=== PATIENT | female | born 1930 | race Hispanic/Latino ===

== ENCOUNTER 2016-08-17 14:00 | Inpatient (IN) | payer MEDICARE, OTHER ==
[~2016-08-17] VITALS: Ht 144.8 cm; Wt 53.7 kg
[2016-08-17 14:06] VITALS: BP 209/71; PULSE 68; RESP 18; O2SAT 98
--- NOTE | 2016-08-17 14:14 | ED.REPORT ---
HPI-General Illness Date of Service Aug 17, 2016 ED Provider: Dr. Juancarlos Marie MD An 86 year old female with a history of dementia presents to the ED with worsening memory loss that began one week ago. Daughter reports that the patient has significantly changed from her baseline. Recent associated symptoms include visual and auditory hallucinations and incoherent thought for the past few days. She has been partially treated for a UTI with Ciprofloxacin which was last given on 08/09. She received 5 out of 14 days of the treatment. Patient has had a previous admission for UTI that presented with similar symptoms. She endorses pain but cannot specify a location. Daughter denies fever, chills. nausea, vomiting, facial droop or changes in BM. Unable to obtain clear history due to patient mental status. Nursing Notes Stated Complaint: HALLUCINATING/MEMORY LOSS Chief Complaint: General Complaint Nursing Notes Reviewed: Yes Allergies: Coded Allergies: No Known Allergies (Unverified , 08/17/16) Scheduled Aspirin (Aspirin) 81 Mg Tablet 81 MG PO DAILY Benazepril (Benazepril) 10 Mg Tablet 10 MG PO DAILY Cholecalciferol (Vitamin D3) (Vitamin D3) 2,000 Unit Tablet 2,000 UNIT PO DAILY Ciprofloxacin (Cipro) 500 Mg Tablet 500 MG PO HS Ferrous Sulfate (Ferrous Sulfate) 325 Mg Tablet 325 MG PO Q48H Furosemide (Furosemide) 20 Mg Tab 10 MG PO DAILY Glipizide (Glipizide) 5 Mg Tablet 2.5 MG PO HS Levothyroxine (Levothyroxine) 25 Mcg Tablet 25 MCG PO DAILY Loperamide HCl (Imodium A-D) 2 Mg Capsule 2 MG PO MORNING Memantine (Namenda) 10 Mg Tablet 5 MG PO HS Olanzapine (Olanzapine) 2.5 Mg Tablet 2.5 MG PO HS General Time Seen by MD: 14:13 Chief Complaint Other (Confusion ) Hx Obtained From: Patient Unable to Obtain Hx: Mental status (Limited Hx due to mental status) Arrived By: Walk-in Sudden in Onset?: No Onset Occurred: 1 week ago Symptom Duration: Since onset Pertinent Negative: Pt denies other symptoms Recent Healthcare: No recent doctor visit, No recent hospitalization Past Medical History Past Medical History Dementia Recurrent UTI's Past Surgical History Valve replacement - unknown which one Cholecysectomy Smoking History Never Smoker Social History Pt currently lives with her daughter who travelled Other Social History: Good social support, From out of town [place] Ambulatory Status Independent Unable to Obtain History Unable to Obtain Due to: Limited PMHx due to mental status Review of Systems Unable to Obtain ROS Mental status (Daughter provides limited ROS) Physical Exam Nursing note and vitals reviewed. Constitutional: Elderly female lying in bed. Not diaphoretic. Head: Normocephalic and atraumatic. Mouth/Throat: Oropharynx is clear and moist. Mucous membranes moist. No oropharyngeal exudate. Eyes: EOM are normal. Pupils are equal, round, and reactive to light. Neck: Supple, no tracheal deviation. Cardiovascular: III/ systolic murmur. Normal rate, regular rhythm. Equal and intact distal pulses throughout. Trace edema to bilateral extremities. Pulmonary/Chest: Effort normal and breath sounds normal. No respiratory distress. Abdominal: Soft. No distension. There is no tenderness, rebound, or guarding. Bowel sounds present. Musculoskeletal: Range of motion grossly intact, able to move all extremities. Neurological: Alert but not answering specific questions regarding orientation to place, person, or time. Grossly nonfocal exam otherwise. Strength and sensation grossly intact and equal to bilateral upper and lower extremities. Skin: Warm and dry, no rashes or pallor appreciated. Psychiatric: Unable to assess secondary to mental status. Vital Signs Vital Signs Date Time Temp Pulse Resp B/P Pulse Ox O2 Delivery O2 Flow Rate FiO2 08/17/16 16:13 37.0 65 19 146/46 97 Room Air 08/17/16 14:06 36.9 68 18 209/71 98 Initial VS: Reviewed Interpretation & Diagnostics Lab Results Interpretation Result Diagram: 08/17/16 1447 08/17/16 1447 Test 08/17/16 14:47 08/17/16 16:29 White Blood Count 8.0th/mm3 (3.8-10.1) Red Blood Count 3.77mil/mm3 (3.90-5.20) Hemoglobin 9.5g/dL (12.0-15.6) Hematocrit 30.6% (35.0-46.0) Mean Corpuscular Volume 81.2fL (81-100) Mean Corpuscular Hemoglobin 25.2pg (27.0-35.0) Mean Corpuscular Hemoglobin Concent 31.0% (32.0-37.0) Red Cell Distribution Width 16.1% (12.3-15.4) Platelet Count 204bil/L (150-400) Neutrophils (%) (Auto) 53.2% (40-74) Lymphocytes (%) (Auto) 38.4% (14-46) Monocytes (%) (Auto) 6.8% (4-12) Eosinophils (%) (Auto) 0.8% (0-5) Basophils (%) (Auto) 0.5% (0-3) Prothrombin Time 9.6sec (8.1-12.5) Prothromb Time International Ratio 0.90ratio Sodium Level 138mEq/L (134-144) Potassium Level 5.4mEq/L (3.5-5.2) Chloride Level 103mEq/L (97-108) Carbon Dioxide Level 21mmol/L (18-29) Blood Urea Nitrogen 51mg/dL (8-27) Creatinine 1.26mg/dL (0.57-1.00) Estimat Glomerular Filtration Rate 58mL/min (>59) Glucose Level 62mg/dL (60-99) Lactic Acid Level 1.2mmol/L (0.4-2.0) Calcium Level 9.4mg/dL (8.5-10.1) Total Bilirubin 0.4mg/dL (0.0-1.2) Aspartate Amino Transf (AST/SGOT) 32U/L (0-50) Alanine Aminotransferase (ALT/SGPT) 20U/L (0-32) Alkaline Phosphatase 93U/L (25-165) Troponin T < 0.010ug/L (0.0-0.011) Pro-B-Type Natriuretic Peptide 4895pg/mL (0-738) Total Protein 8.0g/dL (6.4-8.4) Albumin 4.2g/dL (3.4-5.0) Hold Mulligan Top Tube Received (Received) Urine Color Yellow (YELLOW) Urine Appearance Clear (CLEAR,HAZY) Urine pH 5.5 (5.0-8.0) Urine Specific [place] 1.010 (1.003-1.035) Urine Protein 30mg/dL (NEG,TRACE) Urine Glucose (UA) Negativemg/dL (NEGATIVE) Urine Ketones Negativemg/dL (NEGATIVE) Urine Occult Blood Moderate (NEGATIVE) Urine Nitrite Negative (NEGATIVE) Urine Bilirubin Negative (NEGATIVE) Urine Urobilinogen Normalmg/dL (NORMAL) Urine Leukocyte Esterase Trace (NEGATIVE) Urine RBC 3-10/hpf (0-2) Urine WBC >50/hpf (0-5) Urine Epithelial Cells Moderate/hpf (NONE-MOD) Urine Crystals None seen (NONE SEEN) Urine Bacteria Moderate/hpf (NONE-FEW) Urine Hyaline Casts None/lpf (NONE) Urine Granular Casts None seen (NONE SEEN) Urine Waxy Casts None seen (NONE SEEN) Urine Red Blood Cell Casts None seen (NONE SEEN) Urine White Blood Cell Casts None seen (NONE SEEN) Urine Mucus None seen (None Seen) Urine Trichomonas None seen (NONE SEEN) Urine Yeast None (NONE SEEN) Urinalysis Comment None Urine Culture Reflexed Indicated ECG Interpretation ECG Interpretation: Sinus Rhythm Rate 60 Elevated T waves in anterolateral leads Prolonged ME interval Left axis deviation Time: 15:21 Interpreted by: ED physician X-Ray Chest Interpretation Chest Xray Interpretation: IMPRESSION: Pneumonia cannot be excluded behind the heart. Atelectasis or infiltrate is likely present Dictated by: London Garcia M.D. on 08/17/2016 at 17:03 Interpretation / Wet Read by: Interpret - Radiologist CT Head Interpretation IMPRESSION: No acute abnormality. No blood or edema is seen. Microvascular ischemic change age and is present in the atrophy is present, and small old lacunes in the thalami and left centrum semiovale are present. Dictated by: London Garcia M.D. on 08/17/2016 at 17:11 Study: Head CT no contrast Interpretation / Wet Read by: Interpret - Radiologist Re-Eval/Medical Decision Med Decision/Clinical Course In summary, 86-year-old female presenting to the ED for evaluation of altered mental status in the setting of recent urinary tract infection. She has no focal neurologic findings on exam. Daughter states that the patient has acted similarly in the past when she has had a urinary tract infection partially treated according to her report. She does have some evidence of urinary tract infection here; started on Levaquin. CT scan of the patient's head was negative for any acute intracranial abnormality. Chest x-ray demonstrates possible retrocardiac opacity consistent with pneumonia, however she has been started on antibiotics will defer any changes in treatment to inpatient team. Do not feel that she needs a lumbar puncture at this time given multiple possible sources, nonfocal exam, afebrile, etc. Plan admission for further evaluation and management. Time of Eval: 17:31 Patient Status: Condition improved Re-Evaluation/Progress Note: Family is informed of the pt's results and the plan to admit for observation. All of thier questions are addressed. They understand and agree with the plan to admit. Consultation : Referral / Consult Name: Master Robertson MD Consulted With: Hospitalist Quarry Supervisor Open Pit: Will see patient, Agrees with eval, Agrees with plan, Accepts admit Counseled Regarding: Diagnosis, Lab results, Need for admission Discharge & Departure Primary Impression: Urinary tract infection Urinary tract infection type: site unspecified Hematuria presence: without hematuria Qualified Code: N39.0 - Urinary tract infection, site not specified Additional Impression: Altered mental status Altered mental status type: unspecified Qualified Code: R41.82 - Altered mental status, unspecified Disposition: ADMITTED TO HOSPITAL Discharge Condition All VS Reviewed: Yes Condition: Stable Scribe Attestation Portions of this note were transcribed by Kate Bui. I, Dr. Marie personally performed the history, physical exam and medical decision-making; I reviewed and confirmed the accuracy of the information in the transcribed note. Signed by: Joey White, 08/17/16 1602. Juancarlos Marie MD Aug 17, 2016 14:14 KATE BUI Aug 17, 2016 14:45
[2016-08-17 14:56] LABS: BASOPHILS % (AUTO) 0.5 % (0-3); EOSINOPHILS % (AUTO) 0.8 % (0-5); MONOCYTES % (AUTO) 6.8 % (4-12); Mean Corpuscular Hemoglobin 25.2 pg (27.0-35.0); Mean Corpuscular Volume 81.2 fL (81-100); NEUTROPHILS % (AUTO) 53.2 % (40-74); Platelet Count 204 bil/L (150-400)
[2016-08-17 16:13] VITALS: BP 146/46; PULSE 65; RESP 19; O2SAT 97
[2016-08-17] MEDS ORDERED: 0.9% Sodium Chloride 1,000 ML IV ONE (16:27)
[2016-08-17 16:37] LABS: APPEARANCE,URINE CLEAR (CLEAR,HAZY); COLOR,URINE YELLOW (YELLOW); OCCULT BLOOD,URINE MODERATE (NEGATIVE); PH,URINE 5.5 (5.0-8.0); UROBILINOGEN,URINE NORMAL (NORMAL)
[2016-08-17] MEDS ORDERED: FUR20 PO (16:58)
[2016-08-17] MEDS ORDERED: LOPE-147 PO (16:58)
[2016-08-17] MEDS ORDERED: OLAN2.5T20 PO (16:58)
[2016-08-17] MEDS ORDERED: CIPR-231 PO (16:58)
[2016-08-17] MEDS ORDERED: NC8176 PO (16:58)
[2016-08-17] MEDS ORDERED: LEVO25TA5 PO (16:58)
[2016-08-17] MEDS ORDERED: ASPI-973 PO (16:58)
[2016-08-17] MEDS ORDERED: NAM10 PO (16:58)
[2016-08-17] MEDS ORDERED: FERR-83 PO ×2 (16:58→17:02)
[2016-08-17] MEDS ORDERED: GLPZ5T PO (16:58)
[2016-08-17] MEDS ORDERED: CHOL200025 PO (16:58)
--- NOTE | 2016-08-17 17:06 | DRSVH ---
PROCEDURE: X-RAY CHEST ONE VIEW, PORTABLE ([id number]) INDICATIONS: ams; eval for PNA, other abnl TECHNIQUE: One view of the chest was acquired. COMPARISON: None. 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 Sternotomy wires are pre sent. Lungs and pleura: There is a poor depth of inspiration on this semiupright portable chest. There is i ndistinctness of markings seen to the heart suggesting atelectasis or infiltrate. The right lung is c onsidered clear Mediastinum: Mediastinal contours appear normal. Heart size is normal. Bones and chest wall: No suspicious bony lesions. Overlying soft tissues appear unremarkable. IMPRESSION: Pneumonia cannot be excluded behind the heart. Atelectasis or infiltrate is likely presen t Dictated by: London Garcia M.D. on 08/17/2016 at 17:03 Approved by: London Garcia M.D. on 08/17/2016 at 17:04
--- NOTE | 2016-08-17 17:16 | DRSVH ---
PROCEDURE: CT BRAIN WITHOUT CONTRAST ([id number]) INDICATIONS: ams; eval for stroke, other abnl TECHNIQUE: Noncontrast 4.5 mm thick angled axial sections acquired from the foramen magnum to the vertex, with c oronal reformats. COMPARISON: None. FINDINGS: Image quality: Excellent. CSF spaces: Basal cisterns are patent. No extra-axial fluid collections. The ventricles are symmet chica in size and shape. Brain: No intracranial bleeds or masses. There is cerebral volume loss for age, with resultant vent ricular and sulcal prominence. There are periventricular and deep white matter chronic small vessel ischemic changes. A small old lacune is in both thalami and in the left centrum semiovale. There is intracranial internal carotid artery atherosclerosis. Skull and face: Calvarium and visualized facial bones appear intact, without suspicious lesions. Sinuses: Visualized sinuses and mastoids are clear. IMPRESSION: No acute abnormality. No blood or edema is seen. Microvascular ischemic change age and is present in the atrophy is present, and small old lacunes in the thalami and left centrum semiovale a re present. Dictated by: London Garcia M.D. on 08/17/2016 at 17:11 Approved by: London Garcia M.D. on 08/17/2016 at 17:14
[2016-08-17 17:34] LABS: INR 0.9 ratio
[2016-08-17] MEDS ORDERED: levoFLOXacin Inj 750 MG in IV Premix 1 EACH IV ONE (17:55)
[2016-08-17] MEDS ORDERED: Alum-Mag Hydrox-Simeth 30 mL Suspension PO PRN ×2 (18:05→19:35)
[2016-08-17] MEDS ORDERED: Ondansetron 2 mg/mL 2 mL Inj IVPUSH PRN ×2 (18:05→19:35)
[2016-08-17] MEDS: 0.9% Sodium Chloride 1,000 ML IV SCH (18:12)
[2016-08-17 18:13] LABS: TROPONIN T < 0.010 ug/L (0.0-0.011)
[2016-08-17 18:22] VITALS: BP 166/43; PULSE 97; RESP 22; O2SAT 94
[2016-08-17 18:30] LABS: Magnesium 2.6 mg/dL (1.6-2.6)
[2016-08-17 18:31] LABS: Lipase 43 U/L (13-60)
[2016-08-17] MEDS ORDERED: Polyethylene Glycol (PEG) 17 Gm Powder PO PRN (19:35)
--- NOTE | 2016-08-17 19:56 | PCM.HPMED ---
Subjective Date of Service Aug 17, 2016 Primary Provider: Admitting Physician: Jose David Wesley MD Primary Care Physician: Other,Physician Attending Physician: Jose David Wesley MD Chief Complaint: Hallucinations/memory loss History of Present Illness: An 86 year old female with a history of dementia, porcine valve in , presents to the ED with worsening memory loss that began one week ago. Daughter reports that the patient has significantly changed from her baseline. Recent associated symptoms include visual and auditory hallucinations and incoherent thought for the past few days. She has been partially treated for a UTI with Ciprofloxacin which was last given on 08/09. She received 5 out of 14 days of the treatment. Patient's daughter reports that one week ago Friday patient had a change in urine color and smell so she called her doctor in [place] who prescribed her ciprofloxacin. Patient's mental status began to change on Friday of last week which is roughly following 5-6 days of ciprofloxacin so patient's daughter decided to discontinue the antibiotics. On Friday she called her physician in [place] Dr. Candelaria Nix. Of note patient was admitted 1.5 years ago to the hospital with nearly identical presentation of altered mental status, hallucinations visual and auditory as well as urinary tract infection. Patient is primarily Argentine-speaking with a little Burkinan, primary care physician is Dr. Candelaria Nix in [facility] [place] telephone you which she visits twice a year. Within the She endorses minor pain in abdomen. Daughter denies fever, chills. nausea, vomiting, facial droop or changes in BM. In the emergency department patient's vitals were as follows; Temperature 36.9, pulse 68, respiratory 18, blood pressure 209/71, pulse ox 98% on room air. Labs notable for White cells 8.0, hemoglobin 9.5, normal differential, potassium 5.4, BUN 51, creatinine 1.26, lactic acid 1.2, BNP 4895, troponin 0.010 Other labs include sodium 138,chloride 103, CO2 21,calcium 9.4, mag 2.6, normal liver function tests, lipase 43, pro calcitonin 0.07 CT of the brain done in the emergency department shows No acute abnormality. No blood or edema is seen. Microvascular ischemic change age and is present in the atrophy is present, and small old lacunes in the thalami and left centrum semiovale are present. Chest x-ray interpreted by the radiologist shows pneumonia cannot be excluded behind the heart. Atelectasis or infiltrate is likely present EKG with LAxis deviation, not ST depressions/elevations. Patient received Levaquin in the emergency department along with IV fluids Review of Systems: A comprehensive review of systems was conducted with the patient and found to be negative except as above in the History of Present Illness. Allergies Coded Allergies: No Known Allergies (Unverified , 08/17/16) Home Medications Aspirin (Aspirin) 81 Mg Tablet 81 MG PO DAILY Benazepril (Benazepril) 10 Mg Tablet 10 MG PO DAILY Cholecalciferol (Vitamin D3) (Vitamin D3) 2,000 Unit Tablet 2,000 UNIT PO DAILY Ciprofloxacin (Cipro) 500 Mg Tablet 500 MG PO HS Ferrous Sulfate (Ferrous Sulfate) 325 Mg Tablet 325 MG PO Q48H Furosemide (Furosemide) 20 Mg Tab 10 MG PO DAILY Glipizide (Glipizide) 5 Mg Tablet 2.5 MG PO HS Levothyroxine (Levothyroxine) 25 Mcg Tablet 25 MCG PO DAILY Loperamide HCl (Imodium A-D) 2 Mg Capsule 2 MG PO MORNING Memantine (Namenda) 10 Mg Tablet 5 MG PO HS Olanzapine (Olanzapine) 2.5 Mg Tablet 2.5 MG PO HS PMH Limited PMHx due to mental status Dementia Recurrent UTI's Surgical History Valve replacement with porcine 09- unknown which one Cholecysectomy Family History Unable to obtain due to patient status Social History Hx Alcohol Use: No Hx Substance Use: No Smoking Status: Never Smoker Living Arrangement: with Family Exam Vital Signs Vital Sign - Last Date Time Temp Pulse Resp B/P Pulse Ox O2 Delivery O2 Flow Rate FiO2 08/17/16 18:22 36.6 97 22 166/43 94 Room Air Exam General: Elderly patient laying in bed. Well-developed. Thin. Appropriately interactive and delightful. HEENT: Normocephalic, atraumatic. External ears without defect. Pupils equal, round, minimally responsive, not pinpoint or dilated. Oropharynx free of erythema with moist mucosa. Edentulous and places. Cardiovascular: Regular rate and rhythm with mild systolic murmurs, rubs, or gallops appreciated Pulmonary: Clear to auscultation bilaterally with no crackles, wheezes, or rhonchi. Normal respiratory effort with no use of accessory muscles. Abdomen: Bowel tones present. Soft, with minor tenderness to palpation on the abdomen diffusely with no signs of rebound tenderness, nondistended. No hepatosplenomegaly or masses appreciated. Extremities: No clubbing, cyanosis, edema, or lymphadenopathy appreciated. Skin: Normal temperature, turgor, and texture; no rash, ulcers, or subcutaneous nodules appreciated. Neurological: Cranial nerves grossly intact. Normal muscle strength, tone, and bulk. Reflexes, coordination, and sensory function within normal limits. Patient ambulance with a front wheel walker at home. Psychiatric: Normal mood and affect. Alert and oriented to person, place, and time. Lab and Diagnostics Result Diagram: 08/17/16 1447 08/17/16 1447 Assessment & Plan An 86 year old female with a history of dementia, porcine valve in , presents to the ED with worsening memory loss that began one week ago. Daughter reports that the patient has significantly changed from her baseline. Recent associated symptoms include visual and auditory hallucinations and incoherent thought for the past few days. She has been partially treated for a UTI with Ciprofloxacin which was last given on 08/09. She received 5 out of 14 days of the treatment. Patient's daughter reports that one week ago Friday patient had a change in urine color and smell so she called her doctor in [place] who prescribed her ciprofloxacin. Patient's mental status began to change on Friday of last week which is roughly following 5-6 days of ciprofloxacin so patient's daughter decided to discontinue the antibiotics. On Friday she called her physician in [place] Dr. Candelaria Nix. Of note patient was admitted 1.5 years ago to the hospital with nearly identical presentation of altered mental status, hallucinations visual and auditory as well as urinary tract infection. Patient is primarily Argentine-speaking with a little Burkinan, primary care [facility] which she visits twice a year. Within the She endorses minor pain in abdomen. Daughter denies fever, chills. nausea, vomiting, facial droop or changes in BM. 1. Acute Encephalopathy, present on admission. Active. - EKG with LAxis deviation, not ST depressions/elevations. - Trend troponins, initial value 0.010 continue every 6 hours til 3 normal values. - Brain CT - No acute abnormality. No blood or edema is seen. - CXR - pneumonia cannot be excluded behind the heart. Atelectasis or infiltrate is likely present. May Consider two-view chest x-ray in the morning. - Procalcitonin 0.07. - Lactic acid 1.2 - Lipase 48. - NPO till swallow eval. - Blood cultures ordered. - Urine cultures pending, will order sensitivities. 2. Acute on chronic UTI, present on admission. Active. - This patient is incontinent to bowel and bladder and remains an adult depends chronically, so this most likely represents chronic colonization with pyuria. - WBC 8.0, normal diff. - UA - LE trace, +50 WBC, moderate bacteria, moderate epithelial, - Urine Cx pending. - Start Ceftriaxone, patient received Levaquin in the ED. - IV fluids currently NS at 100 per hour. 3. Acute on chronic hypertension, present admission. Active. - BP on admission - 209/71, currently 182/72. - Continue home medications 4. Acute on chronic normocytic Anemia, present on admission. Active. - Reports from daughter that this problem is an ongoing concern and treated by outpatient physician, given iron every other day. - Occult stool ordered. - Hemoglobin on admission 9.5. 5. Acute Hyperkalemia, present on admission. Active. - K+ - 5.4 - Continue IV NS. 6. Acute kidney injury, present on admission. Active. - Current creatinine 1.26, unknown baseline with subjective reports from daughter of it being elevated. - IV fluids at 100 ml/hr Acetaminophen for mild pain when necessary. Bowel regimen Senna and MiraLAX scheduled and PRN. Zofran when necessary for nausea and vomiting. SubQ heparin for now. SCDs in place. High-risk medications: NONE. Disposition: Likely here for > 2 midnights, discharge Dependent upon mental status and infectious status. Will be discharged to likely to home with daughter when medically stable. Pain Evaluation: Adequate Pain Control Resuscitation Status: CPR: Attempt Resuscitation Attending Statement The patient was seen and examined together with Dr. Schwarz on 08/17 and I agree with the history, exam and plan as outlined in the note above. TRISTEN SCHWARZ DO Aug 17, 2016 19:56 Jose David Wesley MD Aug 17, 2016 21:51
[2016-08-17 20:08] VITALS: BP 182/72; PULSE 66; RESP 16; O2SAT 94
[2016-08-17] MEDS: cefTRIAXone Inj 2,000 MG in Dextrose 5% Minibag Plus 50 ML IV SCH (20:41)
[2016-08-17] MEDS: Heparin 5,000 Unit/mL Inj SUBQ SCH ×2 (20:42→23:34)
--- NOTE | 2016-08-17 22:32 | NUR ---
Admit Patient arrived to room 3021 at 1940 from ED, accompanied by daughter and son-in-law. Family oriented to plan of care, room, call light, bed alarm in place. Patient is primarily Greenlandic-speaking, but understands some Kinyarwanda. Denies pain. Blood glucose 59 at time of admit, passed RN swallow screen and had pudding, glucose up to 157 an hour later. Large bruise on right hip from fall on 08/12, per daughter. Boggy heels elevated on pillows. Bed alarm on, telemetry connected, IV fluids and antibiotics infusing as ordered.
[2016-08-17 23:40] VITALS: PULSE 65
[2016-08-18] VITALS (13 sets, daily range): BP systolic 154–215; BP diastolic 55–90; PULSE 62–85; RESP 16–20; O2SAT 92–98
--- NOTE | 2016-08-18 02:37 | NUR ---
Glucose levels Patient's admit blood glucose was 59. Gave apple juice and two cups pudding- glucose up to 157 after eating. At 0200, glucose was 60. MD on unit at this time- new order received for PRN D10. Administering D10, will continue to monitor. Patient is sleeping, mentation unchanged. Addendum: 08/18/16 at 0342 by ARCHANA GOMEZ RN At 0310, glucose level was 105. Addendum: 08/18/16 at 0504 by ARCHANA GOMEZ RN Glucose level at 0500 was 72, administered second half of D10 bag.
[2016-08-18] MEDS: 0.9% Sodium Chloride 1,000 ML IV SCH (06:12)
[2016-08-18] MEDS: Heparin 5,000 Unit/mL Inj SUBQ SCH ×3 (08:39→16:12)
--- NOTE | 2016-08-18 09:49 | NUR ---
Evaluation completed. Please go to "Notes" then click on "Assessments and Notes" (bottom left corner of screen). Then select appropriate discipline tab on top of screen.
[2016-08-18] MEDS ORDERED: Labetalol 5 mg/mL 4 mL Inj IVPUSH ONE ×2 (10:50→17:20)
--- NOTE | 2016-08-18 11:02 | NUR ---
Social Work-attempted assessment: Data:EMR Reviewed. Pt is a 86 y/o female who was admitted on 08/17/16 for UTI and altered mental status per H&P. Pt's insurance is [employer] and PCP is other. EMR reviewed. SW attempted to meet with pt, but pt has baseline dementia per MD. SW placed a call to daughter Bobbi [phone], no answer, SW left a message awaiting a return call. Pt resides at home with daughter. SW will continue to follow. Assessment:Pt who has support from daughter. Plan:Anticipate pt to discharge home with daughter. SW has left message with daughter to complete assessment, awaiting a return call. SW will continue to follow. ALFONSO Malin Addendum: 08/18/16 at 1149 by JANAY TAYLOR SS PRIYANKA also called cell phone of daughter [phone], no answer, awaiting a return call. ALFONSO Malin
--- NOTE | 2016-08-18 12:03 | NUR ---
HTN Patient had a blood pressure of 194/60 this morning before blood pressure medications were given. BP rechecked manually and was 215/73 with pulse of 85. MD notified and 10mg IV Labetalol was ordered and administered. 20 minutes later BP came down to 170/70 with pulse of 72. Will continue to monitor.
--- NOTE | 2016-08-18 13:43 | NUR ---
Social Work-initial assessment: Data:See initial assessment. Pt is a 86 y/o female who was admitted on 08/17/16 for UTI per H&P. Pt's insurance is [facility] [employer] and PCP is Dr.Beatriz Nix in [place]. EMR Reviewed. PRIYANKA met with pt, daughter Bobbi [phone] or [phone] and son in law Yoni at bedside, SW role explained. Pt resides at home with daughter and her family where she remains independent with basic ADLS. Pt does not drive and uses a fww at baseline. Pt has HH and SNF history in [place]. Pt has been living in [place] for the last 16 months and family providers care at home. Pt has no skilled nursing care insurance or VA benefits. Pt has completed DPOA/advanced directive in [place], daughter requesting form from PRIYANKA,which has been provided. Daughter is hopeful to have some HH services for pt at home. SW to discuss with MD and await MD orders. Pt's daughter confirms they will be providing transport home at discharge. SW provided phone number and plan on white board in room. SW will continue to follow. Assessment:Pt who has family support. Plan:Pt to discharge home when medically stable via POV. Sw to await MD orders for HH services. SW will continue to follow. ALFONSO Malin Addendum: 08/18/16 at 1350 by JANAY TAYLOR SS Amended: Links added.
--- NOTE | 2016-08-18 15:17 | NUR ---
Oxygen Patient was up with PT and was wheezy to lungs. Patient O2 saturations were at 85%. 2 L supplemental oxygen placed on patient and oxygen saturations went up to 95%. MD notified.
--- NOTE | 2016-08-18 15:43 | NUR ---
Evaluation completed. Please go to "Notes" then click on "Assessments and Notes" (bottom left corner of screen). Then select appropriate discipline tab on top of screen.
--- NOTE | 2016-08-18 16:22 | PCM.PNMED ---
Subjective Date of Service Aug 18, 2016 Subjective Denies any new issues/complaints Exam Vital Signs Vital Sign - Last Date Time Temp Pulse Resp B/P Pulse Ox O2 Delivery O2 Flow Rate FiO2 08/18/16 13:10 36.7 63 16 156/70 93 Room Air Intake and Output 08/17/16 08/17/16 08/18/16 Cumulative From/Thru 15:00 23:00 07:00 08/17/16 14:06 - 08/18/16 06:45 Intake Total 1000 ml 1112 ml 2112 ml Output Total 3 ml 3 ml Balance 1000 ml 1109 ml 2109 ml Intake Oral 0 ml 0 ml IV Total 1000 ml 1112 ml 2112 ml Output Urine/Stool Mix 3 ml 3 ml # Bowel Movements 0 0 General: Alert, Cooperative, No Acute Distress Head: Normal Eyes: Scleral Anicteric Nose: Mucous Membr Moist/[place] Mouth: Mucous Membr Moist/[place] Neck: Supple Chest & Lungs: Chest Wall Normal, Clear to auscultation & percussion Cardiovascular: Regular Rate/Rhythm Pulses: NL carotid, radial, femoral, DP, PT Abdomen: Non-tender, Non-distended, Normoactive bowel tones, Soft Extremities: No cyanosis/clubbing/edma bilat Neurological: Grossly Neurologically Intact IVs and Medications Medications Reviewed: Medications were reviewed in detail Lab and Diagnostics Result Diagram: 08/17/16 1447 08/17/16 1447 X-Rays, CTs and MRIs Date of Service: 08/17/16 1627 PROCEDURE: CT BRAIN WITHOUT CONTRAST ([id number]) IMPRESSION: No acute abnormality. No blood or edema is seen. Microvascular ischemic change age and is present in the atrophy is present, and small old lacunes in the thalami and left centrum semiovale are present. Dictated by: London Garcia M.D. on 08/17/2016 at 17:11 Approved by: London Garcia M.D. on 08/17/2016 at 17:14 Assessment & Plan 86 year old female with a history of dementia, porcine valve in ', presents to the ED with worsening memory loss that began one week earlier. # Acute Encephalopathy, present on admission. Ongoing - Likely due to underlying urinary tract infection - Brain CT - No acute abnormality. - Treat UTI - Continue with supportive care # Acute on chronic UTI, present on admission. Active. - Continue with IV Ceftriaxone, patient received Levaquin in the ED. - Urine Cx pending. # Acute on chronic hypertension, present admission. Active. - BP on admission - 209/71 - Continue home medications - IV Labetalol prn # Acute on chronic normocytic Anemia, present on admission. - Reports from daughter that this problem is an ongoing concern and treated by outpatient physician, given iron every other day. - Followup repeat labs today and again tomorrow # Acute Hyperkalemia, present on admission. - Followup repeat labs today (not ordered on admission) and again tomorrow # Acute kidney injury, present on admission. - Followup repeat labs today (not ordered on admission) and again tomorrow - IV fluid stopped earlier today due to significant hypertension Dispo: 2-3 days pending urine culture results and other issues noted above Resuscitation Status: CPR: Attempt Resuscitation Edgardo Ayoub Aug 18, 2016 16:22
[2016-08-18 16:40] LABS: BASOPHILS % (AUTO) 0.6 % (0-3); EOSINOPHILS % (AUTO) 0.7 % (0-5); MONOCYTES % (AUTO) 8.2 % (4-12); Mean Corpuscular Hemoglobin 25.6 pg (27.0-35.0); Mean Corpuscular Volume 83.6 fL (81-100); NEUTROPHILS % (AUTO) 65.6 % (40-74); Platelet Count 169 bil/L (150-400)
[2016-08-18] MEDS ORDERED: Dextrose 5% 0.45% NaCl 1,000 ML IV ONE (17:10)
[2016-08-18] MEDS ORDERED: Dextrose 10% 250 ML IV PRN (17:20)
--- NOTE | 2016-08-18 18:31 | NUR ---
HTN Patient Blood pressure was elevated this evening at 181/90. MD notified and Labetalol 10mg IV was ordered. Medication was administered. Patient rechecked 15 minutes later with BP at 179/68 and pulse of 65.
[2016-08-18] MEDS: cefTRIAXone Inj 2,000 MG in Dextrose 5% Minibag Plus 50 ML IV SCH (20:21)
[2016-08-18] MEDS: Insulin Human REGular 300 Unit/3 mL Inj SUBQ SCH (22:00)
[2016-08-19] MEDS: Heparin 5,000 Unit/mL Inj SUBQ SCH ×3 (00:30→17:02)
[2016-08-19 04:15] VITALS: BP 158/62; PULSE 75; RESP 20; O2SAT 97
[2016-08-19 06:43] LABS: MONOCYTES % (AUTO) 9.5 % (4-12); Mean Corpuscular Hemoglobin 25.4 pg (27.0-35.0); Mean Corpuscular Volume 82.5 fL (81-100); NEUTROPHILS % (AUTO) 66.4 % (40-74); Platelet Count 153 bil/L (150-400)
[2016-08-19 06:44] LABS: BASOPHILS % (AUTO) 0.5 % (0-3); EOSINOPHILS % (AUTO) 0.9 % (0-5)
[2016-08-19 07:11] LABS: Magnesium 2.2 mg/dL (1.6-2.6)
[2016-08-19] MEDS: Insulin Human REGular 300 Unit/3 mL Inj SUBQ SCH ×4 (08:04→23:05)
[2016-08-19 09:28] VITALS: BP 229/80; PULSE 78; RESP 22; O2SAT 95
[2016-08-19] MEDS ORDERED: Furosemide 10 mg/mL 2 mL Inj IVPUSH ONE (09:55)
--- NOTE | 2016-08-19 10:51 | NUR ---
Hypertension BP 229/[address]. German was notified. New orders given: Stop IV fluid, Lasix 20 mg IV x1, and Amlodipine 5 mg PO daily. [place] alarm set up to prevent pt. from getting out of bed unassisted. She is confused and has baseline dementia. Pt. transferred out of bed to [facility] with 1p assist. Addendum: 08/19/16 at 1354 by VIRAJ BURGESS RN 2 hours after pt. received IV Lasix and Amlodipine, repeat BP still in the 200s. Dr. German was notified and he will review/change medications.
--- NOTE | 2016-08-19 12:40 | PCM.PNMED ---
Subjective Date of Service Aug 19, 2016 Subjective patient seen with daughter at bed side ,daughter states patient continues to hallucinate and is confused .slightly short of breath Exam Vital Signs Vital Sign - Last Date Time Temp Pulse Resp B/P Pulse Ox O2 Delivery O2 Flow Rate FiO2 08/19/16 09:28 37.2 78 22 229/80 95 Nasal Cannula 2.50 Intake and Output 08/18/16 08/18/16 08/19/16 Cumulative From/Thru 15:00 23:00 07:00 08/17/16 14:06 - 08/19/16 05:47 Intake Total 1400 ml 100 ml 3612 ml Output Total 2 ml 5 ml Balance 1398 ml 100 ml 3607 ml Intake Oral 880 ml 100 ml 980 ml IV Total 520 ml 2632 ml Output Urine/Stool Mix 2 ml 5 ml # Voids 4 3 7 # Bowel Movements 2 3 5 Exam General: Alert, Cooperative, No Acute Distress Head: Normal Eyes: Scleral Anicteric Nose: Mucous Membr Moist/[place] Mouth: Mucous Membr Moist/[place] Neck: Supple Chest & Lungs: Chest Wall Normal, Clear to auscultation & percussion Cardiovascular: Regular Rate/Rhythm Pulses: NL carotid, radial, femoral, DP, PT Abdomen: Non-tender, Non-distended, Normoactive bowel tones, Soft Extremities: No cyanosis/clubbing/edma bilat Neurological: Grossly Neurologically Intact IVs and Medications Medications Reviewed: Medications were reviewed in detail Lab and Diagnostics Result Diagram: 08/19/1660408/19/16 0605 X-Rays, CTs and MRIs Date of Service: 08/17/16 1627 PROCEDURE: CT BRAIN WITHOUT CONTRAST ([id number]) IMPRESSION: No acute abnormality. No blood or edema is seen. Microvascular ischemic change age and is present in the atrophy is present, and small old lacunes in the thalami and left centrum semiovale are present. Dictated by: London Garcia M.D. on 08/17/2016 at 17:11 Approved by: London Garcia M.D. on 08/17/2016 at 17:14 Assessment & Plan 86 year old female with a history of dementia, porcine valve in ', presents to the ED with worsening memory loss that began one week earlier. # Acute Encephalopathy, present on admission. Ongoing - Likely due to underlying urinary tract infection - Brain CT - No acute abnormality. - Treat UTI - Continue with supportive care -blood culture negative x2 # Acute on chronic UTI, present on admission. Active. - Continue with IV Ceftriaxone, patient received Levaquin in the ED. - Urine Cx mixed naz # Acute on chronic hypertension, present admission. Active. - BP on admission - 209/71 - Continue home medications -started amlodipine 5mg daily -resume home lisinopril and lasix. -dc iv fluid # Acute on chronic normocytic Anemia, present on admission. - Reports from daughter that this problem is an ongoing concern and treated by outpatient physician, given iron every other day. # Acute Hyperkalemia, present on admission. - improved to 5.2 # Acute kidney injury, present on admission. - improved,initial Cr 1.26,improved 1.09 Dispo: 2-3 days pending improvement Resuscitation Status: CPR: Attempt Resuscitation Luis German MD Aug 19, 2016 12:39
[2016-08-19 13:19] VITALS: BP 211/77; PULSE 77; O2SAT 98
--- NOTE | 2016-08-19 14:37 | NUR ---
XR Pt. transferred to XR dept in a WC at 1437. Winding Inspector was called to assist with instructions.
--- NOTE | 2016-08-19 15:06 | DRSVH ---
PROCEDURE: X-RAY CHEST, TWO VIEWS ([id number]) INDICATIONS: cough TECHNIQUE: 2 views of the chest were acquired. COMPARISON: [facility], CR, XR CHEST 1VW (PORTABLE), 08/17/2016, 16:28. FINDINGS: Surgical changes and devices: None. Lungs and pleura: No pleural effusions or pneumothorax. Bibasilar pleural airspace opacity and smal l left pleural effusion not significantly changed. Mediastinum: Mediastinal contours are normal. Heart size is normal. Bones and chest wall: No suspicious bony abnormalities. Soft tissues appear unremarkable. IMPRESSION: Bibasilar airspace opacities and small pleural effusions not significantly changed from t he last exam. Continued radiographic surveillance to resolution is recommended. Dictated by: León STEVE Interpreted: Peyton Turpin MD on 08/19/2016 at 15:04 Transcribed by: JOSE MANUEL on 08/19/2016 at 15:06 Approved by: Peyton Turpin M.D. on 08/20/2016 at 8:10
--- NOTE | 2016-08-19 16:09 | NUR ---
Social Work-continue d/c planning: Data:EMR reviewed. Pt is on day 2 of hospitalization for UTI per H&P. Pt is not medically stable anticipate 1-2 more days. MD order placed for SNF placement. PT recommending SNF. SW placed a call to daughter Bobbi to discuss, no answer, left message, awaiting a return call. SW will continue to follow. Assessment:Pt who would benefit from SNF. Plan:SW has left message for daughter to discuss SNF. SW will continue to follow. ALFONSO Malin
[2016-08-19 17:01] VITALS: BP 194/67; PULSE 78
[2016-08-19] MEDS: cefTRIAXone Inj 2,000 MG in Dextrose 5% Minibag Plus 50 ML IV SCH (20:24)
[2016-08-19 20:26] VITALS: BP 142/64; PULSE 71; RESP 20; O2SAT 98
[2016-08-19] MEDS ORDERED: Acetaminophen IV 1,000 MG in IV Premix 1 EACH IV PRN (23:25)
[2016-08-20] MEDS: Heparin 5,000 Unit/mL Inj SUBQ SCH ×3 (02:04→16:30)
[2016-08-20 04:22] VITALS: BP 127/56; PULSE 56; RESP 18; O2SAT 98
--- NOTE | 2016-08-20 06:42 | NUR ---
Fever Low grade fever 37.9 around 2300, no s/s of cough/abdominal pain/chills/dysuria.Iv Tylenol ordered and administered, recheck fever resolved.
[2016-08-20] MEDS: Insulin Human REGular 300 Unit/3 mL Inj SUBQ SCH ×4 (07:30→20:33)
[2016-08-20 08:03] VITALS: BP 197/69; PULSE 64; RESP 18; O2SAT 98
--- NOTE | 2016-08-20 11:40 | NUR ---
Social Work-readiness for discharge: Data:EMR Reviewed. Pt is on day 3 of hospitalization for UTI per H&P. Pt is not medically stable anticipate 1-2 more days. PT has seen pt and recommended SNF. MD order received for SNF placement. SW spoke with daughter Bobbi at bedside, SW role explained. SW provided Bobbi with SNF choice list. Bobbi would like a referral to [facility]. PRIYANKA faxed facesheet and PASRR and provided access in [employer]. Paperwork and PASRR placed in the chart. SW will continue to follow. Assessment:Pt who would benefit from SNF. Plan:[facility] has been faxed. Paperwork and PASRR placed in the chart. SW will continue to follow. ALFONSO Malin
--- NOTE | 2016-08-20 11:41 | NUR ---
SNF choice list provided. ALFONSO Malin
--- NOTE | 2016-08-20 12:12 | NUR ---
[facility] who confirms they would like to complete onsite, which is fine. Asher also has questions about insurance. UR specialist looking into insurance and will call Asher with updated information. ALFONSO Malin
--- NOTE | 2016-08-20 13:54 | PCM.PNMED ---
Subjective Date of Service Aug 20, 2016 Subjective Patient remains confused. Afebrile. Blood pressure remains uncontrolled. Exam Vital Signs Vital Sign - Last Date Time Temp Pulse Resp B/P Pulse Ox O2 Delivery O2 Flow Rate FiO2 08/20/16 08:03 36.7 64 18 197/69 98 Nasal Cannula 2.00 Intake and Output 08/19/16 08/19/16 08/20/16 Cumulative From/Thru 15:00 23:00 07:00 08/17/16 14:06 - 08/20/16 06:50 Intake Total 518 ml 245 ml 4375 ml Output Total 5 ml Balance 518 ml 245 ml 4370 ml Intake Oral 350 ml 0 ml 1330 ml IV Total 168 ml 245 ml 3045 ml Output Urine/Stool Mix 5 ml # Voids 9 2 18 # Bowel Movements 5 1 11 Exam General: Alert, Cooperative, No Acute Distress Head: Normal Eyes: Scleral Anicteric Nose: Mucous Membr Moist/[place] Mouth: Mucous Membr Moist/[place] Neck: Supple Chest & Lungs: Chest Wall Normal, Clear to auscultation & percussion Cardiovascular: Regular Rate/Rhythm,GIII/ systolic murmur at LLSB Pulses: NL carotid, radial, femoral, DP, PT Abdomen: Non-tender, Non-distended, Normoactive bowel tones, Soft Extremities: No cyanosis/clubbing/edma bilat Neurological: Patient confused and having hallucinations per daughter's translation at the bedside. Patient is [place]-speaking IVs and Medications Medications Reviewed: Medications were reviewed in detail Lab and Diagnostics Result Diagram: 08/19/16 0605 08/19/16 0605 X-Rays, CTs and MRIs Date of Service: 08/17/16 1627 PROCEDURE: CT BRAIN WITHOUT CONTRAST ([id number]) IMPRESSION: No acute abnormality. No blood or edema is seen. Microvascular ischemic change age and is present in the atrophy is present, and small old lacunes in the thalami and left centrum semiovale are present. Dictated by: London Garcia M.D. on 08/17/2016 at 17:11 Approved by: London Garcia M.D. on 08/17/2016 at 17:14 Assessment & Plan 86 year old female with a history of dementia, porcine valve in , presents to the ED with worsening memory loss that began one week earlier. # Acute Encephalopathy, present on admission. Ongoing - Likely due to underlying urinary tract infection - Brain CT - No acute abnormality. - Treat UTI - Continue with supportive care -blood culture negative x2. Urinalysis with pyuria. Urine culture mixed naz -We will consider MRI if no improvement by tomorrow # Acute on chronic UTI, present on admission. Active. - Continue with IV Ceftriaxone, patient received Levaquin in the ED. - Urine Cx mixed naz #Uncontrolled hypertension, present admission. Active. - BP on admission - 209/71 - Continue home medications -started amlodipine 5mg daily 08/19. Increased to 10 mg by mouth daily 08/20 -resume home lisinopril and lasix. -dcd iv fluid # Acute on chronic normocytic Anemia, present on admission. - Reports from daughter that this problem is an ongoing concern and treated by outpatient physician, given iron every other day. # Acute Hyperkalemia, present on admission. Resolved - improved to 5.2 # Acute kidney injury, present on admission. - improved,initial Cr 1.26,improved 1.09 # Systolic murmur -Echocardiogram requested [facility] pending improvement Updated PCP in [place] per his request VTE Mechanical Devices: Intermittant Pneumatic CD Resuscitation Status: CPR: Attempt Resuscitation Luis German MD Aug 20, 2016 13:54
[2016-08-20 14:36] VITALS: BP 181/63; PULSE 65; RESP 18; O2SAT 98
--- NOTE | 2016-08-20 16:16 | NUR ---
Refusals Pt refusing ECHO despite pole peeler explaining reasoning and rationale for test. Pt repeating, "No, she doesn't want me to do it." Pt pulled out IV earlier, refusing to have it put back in. She stated, "My daughter is coming back." When clarifying that pt wants to wait until dtr is back, she says yes. Dtr went to work this afternoon, stated she had a lunch break around 7 and would be back then. Will notify MD of above. Addendum: 08/20/16 at 1642 by YU MITCHELL RN Pt refusing blood sugar check this evening, squeezing hand in tight fist and placing under blankets stating, "No! No, no, no!" Refused Heparin as well.
--- NOTE | 2016-08-20 17:37 | NUR ---
IV Pt pulled out IV earlier this AM. When attempted to place another one, pt adamently refused. MD aware, states it is okay to leave IV out at this time.
--- NOTE | 2016-08-20 19:30 | NUR ---
BM Pt with multiple loose/watery BM's this shift. Pt inc of B/B. Sample sent to lab to r/o c-diff.
[2016-08-20 19:57] VITALS: BP 181/67; PULSE 68; RESP 22; O2SAT 96
[2016-08-20] MEDS: cefTRIAXone Inj 2,000 MG in Dextrose 5% Minibag Plus 50 ML IV SCH (20:25)
[2016-08-20 21:55] VITALS: BP 168/61; PULSE 76; O2SAT 96
[2016-08-21] MEDS: Heparin 5,000 Unit/mL Inj SUBQ SCH ×2 (01:09→07:50)
--- NOTE | 2016-08-21 04:31 | NUR ---
HTN/No diarrhea overnight BP 181/63 at pm, asymptomatic, pt denies headache,SOB. Recheck BP down to 168/61 without intervention. has increased med for HTN yesterday,currently on 3 scheduled antihypertensives. Continue monitoring. No diarrhea/BM overnight. C-diff (-). Addendum: 08/21/16 at 0605 by NORIS SHINE RN 1 loose incontinent stool this am. Addendum: 08/21/16 at 0658 by YU MITCHELL RN BP 192/68 HR75 this am, Dr. Wesley notified,Lisinopril and Norvasc given now ordered, but pt refuses them, will let day shift try to give meds later.
[2016-08-21 06:00] VITALS: BP 192/68; PULSE 75; RESP 20; O2SAT 96
[2016-08-21] MEDS: Insulin Human REGular 300 Unit/3 mL Inj SUBQ SCH ×2 (07:49→12:04)
[2016-08-21 09:21] LABS: BASOPHILS % (AUTO) 0.2 % (0-3); EOSINOPHILS % (AUTO) 0.1 % (0-5); MONOCYTES % (AUTO) 6.3 % (4-12); Mean Corpuscular Hemoglobin 25.5 pg (27.0-35.0); Mean Corpuscular Volume 82.2 fL (81-100); Platelet Count 196 bil/L (150-400)
[2016-08-21 09:53] LABS: Magnesium 2.3 mg/dL (1.6-2.6); Phosphorus 4.1 mg/dL (2.5-4.9)
--- NOTE | 2016-08-21 10:23 | NUR ---
Social Work-continued d/c planning: Data:EMR Reviewed. Pt is on day 4 of hospitalization for UTI per H&P. SW was updated by UR specialist that pt's insurance is a managed medicare plan through [place] and pt has no out of network coverage for SNF or HH services. SW called daughter Bobbi to discuss, left message, awaiting a return call. SW will continue to follow. Assessment:Pt who has support at home. Plan:SW has left message with daughter to discuss discharge plan, awaiting a return call. SW will continue to follow. ALFONSO Malin
[2016-08-21 10:44] VITALS: BP 168/60; PULSE 66; RESP 16; O2SAT 100
--- NOTE | 2016-08-21 10:44 | NUR ---
Titrate 02 Pt on 2L via NC, 02 sats 100%. Pt denies any SOB/distress. Pt placed on RA at 1044. Addendum: 08/21/16 at 1101 by YU MITCHELL RN Upon reassessment, pt resting comfortably without any indicators of distress. 02 on RA 95-97%. Will continue to spot check throughout this shift.
--- NOTE | 2016-08-21 11:29 | NUR ---
Social Work-continued d/c planning: Data:EMR reviewed. Pt is on day 4 of hospitalization for UTI per H&P. PRIYANKA spoke with daughter at bedside, SW role explained. SW explained to daughter that pt's insurance is a managed plan through [place] and per [facility] pt does not have any out of network benefit in this area. SW explained pt would not be eligible for services either if she has no coverage. SW explained pt's daughter would either have to take pt home or pay privately for SNF stay. Daughter would like a private quote from [facility] and also [facility] [facility]. Daughter agreeable to referral sent to [employer] [facility]. SW called [facility] and left message. PRIYANKA spoke with Christianne at [employer] who states she will look into insurance and private cost and call SW back. PRIYANKA faxed facesheet and provided access in [employer] to [employer]. Paperwork in the chart. SW will continue to follow. Assessment:Pt who would benefit from SNF. Plan:PRIYANKA has requested private pay quote from [facility] and [employer]. Pt's insurance does not have out of network coverage in this area so SNF would not be covered. Paperwork in the chart. PRIYANKA will continue to follow. ALFONSO Malin
[2016-08-21 12:14] VITALS: PULSE 67
[2016-08-21 13:17] VITALS: BP 169/62; PULSE 77; RESP 16; O2SAT 95
--- NOTE | 2016-08-21 14:48 | PCM.DIMED ---
Discharge Instructions Date of Service Aug 21, 2016 Dates of Hospitalization Aug 17, 2016 at 19:04 Discharge Diagnosis Discharge Diagnosis # Acute Encephalopathy, present on admission. Ongoing - Likely due to partially treated urinary tract infection # Acute on chronic UTI, present on admission. Active. #Uncontrolled hypertension, present admission. Active. # Acute on chronic normocytic Anemia, present on admission. # Acute Hyperkalemia, present on admission. Resolved # Acute kidney injury, present on admission. Resolved Diet Discharge Diet: Low fat, Low Sodium, Heart Healthy, Diabetic Activity Discharge Activity: Other (continue physical therapy at [facility]) Call your provider Call your provider for: Fever or Chills, Shortness of breath, Bleeding, Chest pain, Vomitting, Excessive diarrhea, Weakness (unilateral) Patient Instructions Patient Instructions You were hospitalized due to acute confusion secondary to partially treated UTI. Treated with IV ceftriaxone and mentation improved. Please continue Keflex for 7 more days. Patient had deconditioning and decline in functional status. She used to ambulate independently using a walker . Currently patient needs assistance for transfer. Also needs gait training. Discharge to [facility] per physical therapy recommendation of continued physical therapy. Follow-up with PCP in: 1 week Luis German MD Aug 21, 2016 14:48
[2016-08-21] MEDS ORDERED: AMLO5TAB2 PO (14:49)
[2016-08-21] MEDS ORDERED: CEPH-512 PO (14:49)
--- NOTE | 2016-08-21 14:54 | PCM.DC.MED ---
Discharge Summary Date of Service Aug 21, 2016 Dates of Hospitalization Date of Hospital Admission Aug 17, 2016 at 19:04 Date of Discharge: Aug 21, 2016 Providers: Admitting Physician: Jose David Wesley MD Primary Care Physician: Other,Physician Attending Physician: Jose David Wesley MD Diagnosis at Time of Discharge Diagnosis at Time of Discharge # Acute Encephalopathy, present on admission. Ongoing - Likely due to partially treated urinary tract infection # Acute on chronic UTI, present on admission. Active. #Uncontrolled hypertension, present admission. Active. # Acute on chronic normocytic Anemia, present on admission. # Acute Hyperkalemia, present on admission. Resolved # Acute kidney injury, present on admission. Resolved Consultations none Procedures XRay, CTs & MRIs Date of Service: 08/17/16 1627 PROCEDURE: CT BRAIN WITHOUT CONTRAST ([id number]) IMPRESSION: No acute abnormality. No blood or edema is seen. Microvascular ischemic change age and is present in the atrophy is present, and small old lacunes in the thalami and left centrum semiovale are present. Dictated by: London Garcia M.D. on 08/17/2016 at 17:11 PROCEDURE: X-RAY CHEST, TWO VIEWS ([id number] IMPRESSION: Bibasilar airspace opacities and small pleural effusions not significantly changed from the last exam. Continued radiographic surveillance to resolution is recommended. Dictated by: León Gutiérrez [facility] Interpreted: Peyton Turpin MD on 08/19/2016 at 15:04 Brief History per HPI An 86 year old female with a history of dementia, porcine valve in , presents to the ED with worsening memory loss that began one week ago. Daughter reports that the patient has significantly changed from her baseline. Recent associated symptoms include visual and auditory hallucinations and incoherent thought for the past few days. She has been partially treated for a UTI with Ciprofloxacin which was last given on 08/09. She received 5 out of 14 days of the treatment. Patient's daughter reports that one week ago Friday patient had a change in urine color and smell so she called her doctor in [place] who prescribed her ciprofloxacin. Patient's mental status began to change on Friday of last week which is roughly following 5-6 days of ciprofloxacin so patient's daughter decided to discontinue the antibiotics. On Friday she called her physician in [place] Dr. Candelaria Nix. Of note patient was admitted 1.5 years ago to the hospital with nearly identical presentation of altered mental status, hallucinations visual and auditory as well as urinary tract infection. Patient is primarily Belgian-speaking with a little Kyrgyz, primary care physician is Dr. Candelaria Nix in [facility] telephone you which she visits twice a year. Within the She endorses minor pain in abdomen. Daughter denies fever, chills. nausea, vomiting, facial droop or changes in BM. In the emergency department patient's vitals were as follows; Temperature 36.9, pulse 68, respiratory 18, blood pressure 209/71, pulse ox 98% on room air. Labs notable for White cells 8.0, hemoglobin 9.5, normal differential, potassium 5.4, BUN 51, creatinine 1.26, lactic acid 1.2, BNP 4895, troponin 0.010 Other labs include sodium 138,chloride 103, CO2 21,calcium 9.4, mag 2.6, normal liver function tests, lipase 43, pro calcitonin 0.07 CT of the brain done in the emergency department shows No acute abnormality. No blood or edema is seen. Microvascular ischemic change age and is present in the atrophy is present, and small old lacunes in the thalami and left centrum semiovale are present. Chest x-ray interpreted by the radiologist shows pneumonia cannot be excluded behind the heart. Atelectasis or infiltrate is likely present EKG with LAxis deviation, not ST depressions/elevations. Patient received Levaquin in the emergency department along with IV fluids Hospital Course 86 year old female with a history of dementia, porcine valve in 09', presents to the ED with worsening memory loss that began one week earlier. # Acute Encephalopathy, present on admission. Ongoing - Likely due to partially treated urinary tract infection - Brain CT - No acute abnormality. - Treat UTI - Continue with supportive care -blood culture negative x2. Urinalysis with pyuria. Urine culture mixed naz -Mentation almost bark to baseline per daughter at bedside. Discharged with Keflex for 7 more days. #Complicated UTI, present on admission. Active. -Treated with IV Ceftriaxone, patient received Levaquin in the ED. Discharged with Keflex for 7 more days. - Urine Cx mixed naz #Uncontrolled hypertension, present admission. Active. - BP on admission - 209/71 - Continue home medications -started amlodipine 5mg daily 08/19. Increased to 10 mg by mouth daily 08/20 -resume home lisinopril and lasix. -dcd iv fluid # Acute on chronic normocytic Anemia, present on admission. - Reports from daughter that this problem is an ongoing concern and treated by outpatient physician, given iron every other day. # Acute Hyperkalemia, present on admission. Resolved - improved to 5.2 # Acute kidney injury, present on admission. - improved,initial Cr 1.26,improved 0.9 # Systolic murmur -Echocardiogram requested but the patient refused # Deconditioning Patient had deconditioning and decline in functional status. She used to ambulate independently using a walker . Currently patient needs assistance for transfer. Also needs gait training. Discharge to retirement facility per physical therapy recommendation for continued physical therapy. Dispo: group home facility Updated PCP in [place] per his request Exam Vital Signs (Last) Date Time Temp Pulse Resp B/P Pulse Ox O2 Delivery O2 Flow Rate FiO2 08/21/16 13:17 37.1 77 16 169/62 95 Room Air 08/21/16 10:44 2.00 Exam General: Alert, Cooperative, No Acute Distress Head: Normal Eyes: Scleral Anicteric Nose: Mucous Membr Moist/[place] Mouth: Mucous Membr Moist/[place] Neck: Supple Chest & Lungs: Chest Wall Normal, Clear to auscultation & percussion Cardiovascular: Regular Rate/Rhythm,GIII/ systolic murmur at LLSB Pulses: NL carotid, radial, femoral, DP, PT Abdomen: Non-tender, Non-distended, Normoactive bowel tones, Soft Extremities: No cyanosis/clubbing/edma bilat. Patient debilitated and noted she needs assistance to get out of bed which is not her baseline per daughter. Patient ambulates with a walker at home Neurological: Patient was confused and having hallucinations per daughter's translation at the bedside yesterday. Patient is Belgian-speaking. Patient almost back to Baseline mentation. Oriented to place and person today. Test 08/17/16 14:47 08/17/16 16:29 08/17/16 23:35 08/18/16 16:16 Prothrombin Time 9.6sec (8.1-12.5) Prothromb Time International Ratio 0.90ratio Lactic Acid Level 1.2mmol/L (0.4-2.0) Pro-B-Type Natriuretic Peptide 4895pg/mL (0-738) Lipase 43U/L (13-60) Procalcitonin 0.07ng/mL (0.00-0.08) Hold Mulligan Top Tube Received (Received) Urine Color Yellow (YELLOW) Urine Appearance Clear (CLEAR,HAZY) Urine pH 5.5 (5.0-8.0) Urine Specific [place] 1.010 (1.003-1.035) Urine Protein 30mg/dL (NEG,TRACE) Urine Glucose (UA) Negativemg/dL (NEGATIVE) Urine Ketones Negativemg/dL (NEGATIVE) Urine Occult Blood Moderate (NEGATIVE) Urine Nitrite Negative (NEGATIVE) Urine Bilirubin Negative (NEGATIVE) Urine Urobilinogen Normalmg/dL (NORMAL) Urine Leukocyte Esterase Trace (NEGATIVE) Urine RBC 3-10/hpf (0-2) Urine WBC >50/hpf (0-5) Urine Epithelial Cells Moderate/hpf (NONE-MOD) Urine Crystals None seen (NONE SEEN) Urine Bacteria Moderate/hpf (NONE-FEW) Urine Hyaline Casts None/lpf (NONE) Urine Granular Casts None seen (NONE SEEN) Urine Waxy Casts None seen (NONE SEEN) Urine Red Blood Cell Casts None seen (NONE SEEN) Urine White Blood Cell Casts None seen (NONE SEEN) Urine Mucus None seen (None Seen) Urine Trichomonas None seen (NONE SEEN) Urine Yeast None (NONE SEEN) Urinalysis Comment None Urine Culture Reflexed Indicated Troponin T 0.010ug/L (0.0-0.011) Hemoglobin A1c 6.2% (4.8-5.6) Test 08/21/16 09:05 White Blood Count 9.0th/mm3 (3.8-10.1) Red Blood Count 3.37mil/mm3 (3.90-5.20) Hemoglobin 8.6g/dL (12.0-15.6) Hematocrit 27.7% (35.0-46.0) Mean Corpuscular Volume 82.2fL (81-100) Mean Corpuscular Hemoglobin 25.5pg (27.0-35.0) Mean Corpuscular Hemoglobin Concent 31.0% (32.0-37.0) Red Cell Distribution Width 16.0% (12.3-15.4) Platelet Count 196bil/L (150-400) Neutrophils (%) (Auto) 76.0% (40-74) Lymphocytes (%) (Auto) 17.2% (14-46) Monocytes (%) (Auto) 6.3% (4-12) Eosinophils (%) (Auto) 0.1% (0-5) Basophils (%) (Auto) 0.2% (0-3) Sodium Level 141mEq/L (134-144) Potassium Level 5.1mEq/L (3.5-5.2) Chloride Level 103mEq/L (97-108) Carbon Dioxide Level 23mmol/L (18-29) Blood Urea Nitrogen 29mg/dL (8-27) Creatinine 0.89mg/dL (0.57-1.00) Estimat Glomerular Filtration Rate 86mL/min (>59) Glucose Level 203mg/dL (60-99) Calcium Level 9.2mg/dL (8.5-10.1) Phosphorus Level 4.1mg/dL (2.5-4.9) Magnesium Level 2.3mg/dL (1.6-2.6) Total Bilirubin 0.2mg/dL (0.0-1.2) Aspartate Amino Transf (AST/SGOT) 17U/L (0-50) Alanine Aminotransferase (ALT/SGPT) 14U/L (0-32) Alkaline Phosphatase 89U/L (25-165) Total Protein 6.6g/dL (6.4-8.4) Albumin 3.2g/dL (3.4-5.0) Discharge Medications Discharge Medications Amlodipine (Amlodipine) 5 Mg Tablet 10 MG PO DAILY Prescribed by: LUIS GERMAN MD Aspirin (Aspirin) 81 Mg Tablet 81 MG PO DAILY (Reported) Benazepril (Benazepril) 10 Mg Tablet 10 MG PO DAILY (Reported) Cephalexin (Keflex) 500 Mg Capsule 500 MG PO TID Prescribed by: LUIS GERMAN MD Cholecalciferol (Vitamin D3) (Vitamin D3) 2,000 Unit Tablet 2,000 UNIT PO DAILY (Reported) Ferrous Sulfate (Ferrous Sulfate) 325 Mg Tablet 325 MG PO Q48H (Reported) Furosemide (Furosemide) 20 Mg Tab 10 MG PO DAILY (Reported) Glipizide (Glipizide) 5 Mg Tablet 2.5 MG PO HS (Reported) Levothyroxine (Levothyroxine) 25 Mcg Tablet 25 MCG PO DAILY (Reported) Loperamide HCl (Imodium A-D) 2 Mg Capsule 2 MG PO MORNING (Reported) Memantine (Namenda) 10 Mg Tablet 5 MG PO HS (Reported) Olanzapine (Olanzapine) 2.5 Mg Tablet 2.5 MG PO HS (Reported) Followup Plan Disposition: group home facility,[facility] Discharge Diet: Low fat, Low Sodium, Heart Healthy, Diabetic Discharge Activity: Other (continue physical therapy at retirement facility) Patient Instructions You were hospitalized due to acute confusion secondary to partially treated UTI. Treated with IV ceftriaxone and mentation improved. Please continue Keflex for 7 more days. Patient had deconditioning and decline in functional status. She used to ambulate independently using a walker . Currently patient needs assistance for transfer. Also needs gait training. Discharge to retirement facility per physical therapy recommendation of continued physical therapy. Follow-up with PCP in: 1 week Time spent 35 minutes Luis German MD Aug 21, 2016 14:54
--- NOTE | 2016-08-21 15:01 | NUR ---
Faxed discharge to [facility] for transfer to [facility] [phone] REF#[id number] Addendum: 08/21/16 at 1555 by DILSHAD PEREZ Faxed orders to [facility] and placed copy in the chart. Called and spoke with Christianne Meraz assistance coordinator at [facility] and she is having transport filler picker patient at 1645. Updated [facility] [employer] and RN
--- NOTE | 2016-08-21 16:05 | NUR ---
Social Work-readiness for discharge: Data:EMR reviewed. Pt is on day 4 of hospitalization for UTI per H&P. PRIYANKA spoke with Christianne at [facility] who confirms she is working with insurance company to do a on time contact. Christianne states she has submitted everything and will let SW know once this has been approved. SW updated pt's daughter that insurance may pay for SNF placement. Daughter agreeable. SW will continue to follow. Assessment:Pt to benefit form SNF. Plan:[facility] to likely [facility] when medically stable[facility]. SW will continue to follow. ALFONSO Malin
--- NOTE | 2016-08-21 16:07 | NUR ---
Social Work-discharge: Data:EMR reviewed. Pt is on day 4 of hospitalization for UTI per H&P. Pt is medically stable for discharge. PT continues to recommend SNF placement. PRIYANKA updated by UR specialist that pt has been approved by insurance for one time authorization for SNF placement. UR specialist has arranged transport for 1645 and faxed orders. SW updated daughter Bobbi who states she will be able to transport with pt over to facility in w/c. Daughter agreeable to plan. RN,UC,pt/family, and Mar Adams all updated and agreeable to plan. Assessment:Pt who would benefit from SNF. Plan:Pt to discharge to [facility] today via cabulance at 1645. Insurance has authorized one time contact. RN,UC,pt/family, and Mar Adams all updated and agreeable to plan. ALFONSO Malin
--- NOTE | 2016-08-21 16:58 | NUR ---
DISCHARGE Pt discharged this afternoon at 1650 to [facility] via transport w/c. Pt alert to self. Vital signs stable, denies any pain/discomfort. Acetaminophen given prior to transfer. Pt's belongings returned, IV dc'd intact. Dtr Bobbi at bedside and will ride along with pt. Report called to NATALYA at [facility].
== END 2016-08-21 16:50 | DRG 689 ==
LOC: SED 14:00 → MPC 19:04
PROVIDERS: ADMIT Hospitalist; ATTEND Hospitalist
DX: N39.0 Urinary tract infection, site not specified (principal); G93.40 Encephalopathy, unspecified; N17.9 Acute kidney failure, unspecified; I10 Essential (primary) hypertension; D64.9 Anemia, unspecified; E87.5 Hyperkalemia; F03.90 Unspecified dementia, unspecified severity, without behavioral disturbance, psychotic disturbance, mood disturbance, and anxiety

== ENCOUNTER 2016-08-23 13:09 | Inpatient (IN) | payer MEDICARE ==
[~2016-08-23] VITALS: Ht 144.8 cm; Wt 53.8 kg
[~2016-08-23 13:09] MED LIST: AMLO5TAB2 PO; ASPI-973 PO; CEPH-512 PO; CHOL200025 PO; FERR-83 PO; FUR20 PO; GLPZ5T PO; LEVO25TA5 PO; LOPE-147 PO; NAM10 PO; NC8176 PO; OLAN2.5T20 PO
[2016-08-23 13:22] VITALS: BP 150/58; PULSE 68; RESP 18; O2SAT 97
[2016-08-23 13:37] LABS: BASOPHILS % (AUTO) 0.4 % (0-3); EOSINOPHILS % (AUTO) 2.1 % (0-5); MONOCYTES % (AUTO) 6.8 % (4-12); Mean Corpuscular Hemoglobin 25.2 pg (27.0-35.0); Mean Corpuscular Volume 83.3 fL (81-100); NEUTROPHILS % (AUTO) 66.9 % (40-74); Platelet Count 219 bil/L (150-400)
--- NOTE | 2016-08-23 13:58 | ED.REPORT ---
HPI-General Illness Date of Service Aug 23, 2016 ED Provider: Doc,Ed MD The patient is an 86 year old female with history of dementia and recurrent UTIs , who was brought to the emergency department by EMS for decreased LOC. The patient was seen normal this morning but around 1200 she was found unresponsive. The patient was recently admitted on the of this month for altered mental status and a UTI. She had a normal head CT during this admission. She was discharged to [facility] on the on Keflex. Her family member reports the patient was doing well after she was discharged from the hospital. The patient has had similar symptoms in the past when she previously had a UTI. She has been eating and drinking well. The history is somewhat limited due to the patient's mental status. She does mention chest discomfort that began yesterday. No other complaints at this time. Nursing Notes Stated Complaint: DECREASE LOC Chief Complaint: General Complaint Nursing Notes Reviewed: Yes Allergies: Coded Allergies: No Known Allergies (Unverified , 08/17/16) Scheduled Amlodipine (Amlodipine) 5 Mg Tablet 10 MG PO DAILY Aspirin (Aspirin) 81 Mg Tablet 81 MG PO QAM Benazepril (Benazepril) 10 Mg Tablet 10 MG PO QAM Cephalexin (Keflex) 500 Mg Capsule 500 MG PO TID Cholecalciferol (Vitamin D3) (Vitamin D3) 2,000 Unit Tablet 2,000 UNIT PO QAM Ferrous Sulfate (Ferrous Sulfate) 325 Mg Tablet 325 MG PO Q48H Furosemide (Furosemide) 20 Mg Tab 10 MG PO QAM Glipizide (Glipizide) 5 Mg Tablet 2.5 MG PO HS Levothyroxine (Levothyroxine) 25 Mcg Tablet 25 MCG PO QAM Loperamide HCl (Imodium A-D) 2 Mg Capsule 2 MG PO QAM Memantine (Namenda) 10 Mg Tablet 5 MG PO HS Olanzapine (Olanzapine) 2.5 Mg Tablet 2.5 MG PO HS Scheduled PRN Acetaminophen (Acetaminophen) 325 Mg Tablet 650 MG PO Q4H PRN PRN For Fever General Time Seen by MD: 13:58 Chief Complaint Other (decreased LOC) Hx Obtained From: Patient (limited), Other family..., EMS Arrived By: Ambulance Sudden in Onset?: Yes Onset Occurred: 1 - 4 hours ago Symptom Duration: Since onset Severity: Current: No pain currently Severity: Maximum: No pain Recent Healthcare: Recent doctor visit, Recent hospitalization Similar Sx Previous: Yes Past Medical History Past Medical History Dementia Recurrent UTIs Past Surgical History Cholecystectomy Porcine valve in 2009 Family History Noncontributory Smoking History Never Smoker Social History Lives at [facility] Alcohol Use: Denies alcohol use Drug Use: Denies drug use Other Social History: Good social support, Local resident Ambulatory Status Walker Review of Systems ROS is somewhat limited due to her mental status Full Review of Systems Cardiovascular: Reports: Chest pain Neurologic: Reports: Change LOC Psychiatric: Reports: Change mental status Physical Exam Nursing note and vitals reviewed. Constitutional: Alert but slow to respond. Not diaphoretic. Head: Normocephalic and atraumatic. Mouth/Throat: Oropharynx is clear. Mucous membranes are dry. No oropharyngeal exudate. Eyes: EOM are normal. Pupils are equal, round, and reactive to light. Neck: Supple, no tracheal deviation. Cardiovascular: Normal rate, regular rhythm. Equal and intact distal pulses throughout. Pulmonary/Chest: Effort normal and breath sounds normal. No respiratory distress. Mild chest wall tenderness without erythema or crepitus. Abdominal: Soft. No distension. There is no tenderness, rebound, or guarding. Bowel sounds present. Musculoskeletal: Range of motion grossly intact, moving all extremities. No edema or tenderness appreciated. Neurological: She does appear to be oriented to her surroundings and is able to follow commands. Grossly nonfocal exam. Strength and sensation intact and equal to bilateral upper and lower extremities. Skin: Warm and dry, no rashes or pallor appreciated. Psychiatric: Appropriate mood and affect. Behavior appears normal. Vital Signs Vital Signs Date Time Temp Pulse Resp B/P Pulse Ox O2 Delivery O2 Flow Rate FiO2 08/23/16 16:55 75 159/78 96 Room Air 08/23/16 13:22 37.0 68 18 150/58 97 Room Air Initial VS: Reviewed Interpretation & Diagnostics Lab Results Interpretation Result Diagram: 08/23/16 1320 08/23/16 1320 Test 08/23/16 13:20 08/23/16 14:41 08/23/16 15:25 White Blood Count 7.8th/mm3 (3.8-10.1) Red Blood Count 3.18mil/mm3 (3.90-5.20) Hemoglobin 8.0g/dL (12.0-15.6) Hematocrit 26.5% (35.0-46.0) Mean Corpuscular Volume 83.3fL (81-100) Mean Corpuscular Hemoglobin 25.2pg (27.0-35.0) Mean Corpuscular Hemoglobin Concent 30.2% (32.0-37.0) Red Cell Distribution Width 16.0% (12.3-15.4) Platelet Count 219bil/L (150-400) Neutrophils (%) (Auto) 66.9% (40-74) Lymphocytes (%) (Auto) 23.5% (14-46) Monocytes (%) (Auto) 6.8% (4-12) Eosinophils (%) (Auto) 2.1% (0-5) Basophils (%) (Auto) 0.4% (0-3) Sodium Level 139mEq/L (134-144) Potassium Level 5.5mEq/L (3.5-5.2) Chloride Level 103mEq/L (97-108) Carbon Dioxide Level 22mmol/L (18-29) Blood Urea Nitrogen 38mg/dL (8-27) Creatinine 1.05mg/dL (0.57-1.00) Estimat Glomerular Filtration Rate 71mL/min (>59) Glucose Level 103mg/dL (60-99) Calcium Level 8.9mg/dL (8.5-10.1) Total Bilirubin 0.2mg/dL (0.0-1.2) Aspartate Amino Transf (AST/SGOT) 26U/L (0-50) Alanine Aminotransferase (ALT/SGPT) 16U/L (0-32) Alkaline Phosphatase 83U/L (25-165) Total Protein 7.2g/dL (6.4-8.4) Albumin 3.4g/dL (3.4-5.0) Procalcitonin 0.19ng/mL (0.00-0.08) Urine Color Yellow (YELLOW) Urine Appearance Clear (CLEAR,HAZY) Urine pH 5.5 (5.0-8.0) Urine Specific [place] <1.005 (1.003-1.035) Urine Protein Negativemg/dL (NEG,TRACE) Urine Glucose (UA) Negativemg/dL (NEGATIVE) Urine Ketones Negativemg/dL (NEGATIVE) Urine Occult Blood Trace (NEGATIVE) Urine Nitrite Negative (NEGATIVE) Urine Bilirubin Negative (NEGATIVE) Urine Urobilinogen Normalmg/dL (NORMAL) Urine Leukocyte Esterase Trace (NEGATIVE) Urine RBC 0-2/hpf (0-2) Urine WBC 0-5/hpf (0-5) Urine Epithelial Cells Few/hpf (NONE-MOD) Urine Crystals None seen (NONE SEEN) Urine Bacteria None/hpf (NONE-FEW) Urine Hyaline Casts None/lpf (NONE) Urine Granular Casts None seen (NONE SEEN) Urine Waxy Casts None seen (NONE SEEN) Urine Red Blood Cell Casts None seen (NONE SEEN) Urine White Blood Cell Casts None seen (NONE SEEN) Urine Mucus None seen (None Seen) Urine Trichomonas None seen (NONE SEEN) Urine Yeast None (NONE SEEN) Urinalysis Comment None Urine Culture Reflexed Indicated Lactic Acid Level 0.6mmol/L (0.4-2.0) Magnesium Level 2.4mg/dL (1.6-2.6) ECG Interpretation ECG Interpretation: Sinus rhythm with significant artifact Time: 13:53 Interpreted by: ED physician X-Ray Chest Interpretation Chest Xray Interpretation: IMPRESSION: 1. Mild bilateral interstitial and airspace infiltrates suggesting pulmonary edema secondary to congestive heart failure. 2. More confluent opacity in the left lung base may be superimposed pneumonia. Interpretation / Wet Read by: Interpret - Radiologist CT Head Interpretation IMPRESSION: 1. No acute intracranial hemorrhage. 2. Extensive chronic small vessel ischemic changes and moderate parenchymal volume loss. Dictated by: Brennan Dias M.D. on 08/23/2016 at 14:26 Study: Head CT no contrast Interpretation / Wet Read by: Interpret - Radiologist Re-Eval/Medical Decision Med Decision/Clinical Course 86-year-old female presenting to the ED for evaluation of altered mental status in the setting of recent admission for UTI. She has been taking Keflex as an outpatient, though has had partially treated UTIs in the past that manifest similarly according to her daughter. Urinalysis here does not demonstrate obvious infection, however unclear if this is related to her recent antibiotic use. Head CT negative for any acute abnormalities today. Chest x-ray does demonstrate some findings consistent with pulmonary edema, however patient hemodynamically stable here without dyspnea. Given her recurrent symptoms that seem similar to previous, plan admission for further management and evaluation, possible ID consult. Discussed with family, who are agreeable to the plan for admission, no further questions. Source of Hx: Old records, EMS, Family Time of Eval: 15:00 Re-Evaluation/Progress Note: Discussed plan for admission. All questions were addressed. Consultation : Consulted With: Hospitalist Requested Call at: 16:30 Mobile Home Laborer: Will see patient, Agrees with eval, Agrees with plan, Accepts admit Note: Night hospitalist will be the admitting physician. Counseled Regarding: Diagnosis, Lab results, Need for admission Discharge & Departure Primary Impression: Altered mental status Altered mental status type: unspecified Qualified Code: R41.82 - Altered mental status, unspecified Disposition: ADMITTED TO HOSPITAL Discharge Condition All VS Reviewed: Yes Condition: Stable Referrals: NOPCP (PCP) Scribe Attestation Portions of this note were transcribed by Hilda Phillips. I, Dr. Marie personally performed the history, physical exam and medical decision-making; I reviewed and confirmed the accuracy of the information in the transcribed note. Signed by: Joey Grissom, 08/23/2016 at 1800. Juancarlos Marie MD Aug 23, 2016 13:58 Hilda Phillips Aug 23, 2016 14:45
[2016-08-23] MEDS ORDERED: 0.9% Sodium Chloride 1,000 ML IV ONE (15:04)
[2016-08-23 15:05] LABS: APPEARANCE,URINE CLEAR (CLEAR,HAZY); COLOR,URINE YELLOW (YELLOW); OCCULT BLOOD,URINE TRACE (NEGATIVE); PH,URINE 5.5 (5.0-8.0); UROBILINOGEN,URINE NORMAL (NORMAL)
--- NOTE | 2016-08-23 15:29 | DRSVH ---
PROCEDURE: CT BRAIN WITHOUT CONTRAST ([id number]) INDICATIONS: Acute mental status changes. TECHNIQUE: Noncontrast 4.5 mm thick angled axial sections acquired from the foramen magnum to the vertex, with c oronal reformats. COMPARISON: [facility], CT, CT BRAIN WO CON, 08/17/2016, 16:53. FINDINGS: Image quality: Diagnostic. Brain: There is no acute intra-axial or extra-axial hemorrhage. No extra-axial fluid collection is i dentified. There is no midline shift or mass effect. The orbits are grossly unremarkable. No large areas of diffusely decreased attenuation are evident within the brain to suggest diffuse cer ebral edema. Focal and confluent areas of low attenuation are seen within the periventricular and de ep white matter of the supratentorial brain, best appreciated within the frontal and parietal lobes. Calcifications of the intracranial portions of the vertebral arteries are noted. The ventricles and cortical sulci are moderately prominent. Bones: Calvarium and visualized facial bones are grossly intact. The imaged paranasal sinuses and m astoid air cells are clear. IMPRESSION: 1. No acute intracranial hemorrhage. 2. Extensive chronic small vessel ischemic changes and moderate parenchymal volume loss. Dictated by: Brennan Dias M.D. on 08/23/2016 at 14:26 Approved by: Brennan Dias M.D. on 08/23/2016 at 14:27
[2016-08-23] MEDS ORDERED: ACET325T51 PO (16:44)
[2016-08-23 16:55] VITALS: BP 159/78; PULSE 75; O2SAT 96
[2016-08-23] MEDS ORDERED: Alum-Mag Hydrox-Simeth 30 mL Suspension PO PRN ×2 (17:45→18:30)
[2016-08-23] MEDS ORDERED: Ondansetron 2 mg/mL 2 mL Inj IVPUSH PRN ×2 (17:45→18:30)
[2016-08-23 18:03] VITALS: BP 159/78; PULSE 75; RESP 18; O2SAT 96
[2016-08-23 18:20] VITALS: BP 150/66; PULSE 56; RESP 14; O2SAT 100
[2016-08-23] MEDS ORDERED: Polyethylene Glycol (PEG) 17 Gm Powder PO PRN (18:30)
[2016-08-23] MEDS: Heparin 5,000 Unit/mL Inj SUBQ SCH ×2 (18:30→19:18)
--- NOTE | 2016-08-23 18:35 | NUR ---
Admit Report provided by Bonita LEMONS RN. Pt arrived on floor at 181. POA/daughter at bedside with MD during MD assessment. Pt minimally interactive but following commands. Brief in place for reported incontinence but pt clean and dry. Total assist in bed. VSS. On 2L NC but sats 100% so likely can be titrated.
--- NOTE | 2016-08-23 18:39 | PCM.HPMED ---
Subjective Date of Service Aug 23, 2016 Primary Provider: Admitting Physician: Master Robertson MD Primary Care Physician: Smith Attending Physician: Master Robertson MD Admit Status: From the Emergency Department, Full Admit, Non-Telemetry Chief Complaint: Recurrent septic encephalopathy, probable recurrent or persistent urinary tract infection which is complicated. History of Present Illness: This is a 86-year-old female who was in the hospital until 2 days ago. She has a history of dementia and recurrent urinary tract infection. She moved to this area 2 years ago from [place]. 2 years ago she had an admission for the same one home and then became confused again required longer course of IV antibiotics. This time the patient was in IV ceftriaxone and had a urine culture positive for mixed naz. Her encephalopathy improved consistent with a presumptive diagnosis of urinary tract infection. She was discharged to [facility] for a transitional rehabilitation stated 2 days ago. She was placed on oral Keflex. She did well for the last 2 days until earlier today. She is walking and talking at or near her baseline. She does have fairly severe dementia. Today however she became lethargic, much less arousable and unable to really speak or walk. No fevers or chills are reported. All history is from her daughter. There was no report of diarrhea however she does have a long history of fecal incontinence. In the ED she had fairly normal laboratories except for a mild hyperkalemia. She did have a KI with hyperkalemia and her previous admission. The patient can provide no further subjective details on review of systems. Review of Systems: Not obtainable due to dementia Allergies Coded Allergies: No Known Allergies (Unverified , 08/17/16) Home Medications Amlodipine (Amlodipine) 5 Mg Tablet 10 MG PO DAILY Aspirin (Aspirin) 81 Mg Tablet 81 MG PO QAM Benazepril (Benazepril) 10 Mg Tablet 10 MG PO QAM Cephalexin (Keflex) 500 Mg Capsule 500 MG PO TID Cholecalciferol (Vitamin D3) (Vitamin D3) 2,000 Unit Tablet 2,000 UNIT PO QAM Ferrous Sulfate (Ferrous Sulfate) 325 Mg Tablet 325 MG PO Q48H Furosemide (Furosemide) 20 Mg Tab 10 MG PO QAM Glipizide (Glipizide) 5 Mg Tablet 2.5 MG PO HS Levothyroxine (Levothyroxine) 25 Mcg Tablet 25 MCG PO QAM Loperamide HCl (Imodium A-D) 2 Mg Capsule 2 MG PO QAM Memantine (Namenda) 10 Mg Tablet 5 MG PO HS Olanzapine (Olanzapine) 2.5 Mg Tablet 2.5 MG PO HS Scheduled PRN Acetaminophen (Acetaminophen) 325 Mg Tablet 650 MG PO Q4H PRN PRN For Fever PMH Recurrent urinary tract infection Dementia Hypertension Recent acute kidney injury with hyperkalemia Bioprosthetic valve replacement Chronic anemia Surgical History Bioprosthetic valve replacement Cholecystectomy Family History Not obtainable due to encephalopathy Social History Hx Alcohol Use: No Hx Substance Use: No Smoking Status: Never Smoker Living Arrangement: [facility] Facility Exam Vital Signs Vital Sign - Last Date Time Temp Pulse Resp B/P Pulse Ox O2 Delivery O2 Flow Rate FiO2 08/23/16 16:55 75 159/78 96 Room Air 08/23/16 13:22 37.0 18 Exam Arousable, able to answer very simple questions intermittently. No distress. Normal skull. Normal nose and ears. Anicteric sclera, symmetric pupils Oropharynx is unremarkable, no facial droop. Neck is supple, normal thyroid. No adenopathy. Lungs are clear, normal effort rate. Heart is regular without murmur gallop or rub. Abdomen soft, nondistended or tender. Extremities are free of pedal edema. Good radial and pedal pulses. Skin is free of rash, lesions. Many ecchymosis on arms and legs . Joints are grossly normal. Cranial nerves are grossly normal. Motor strength, she moves all extremities. Normal muscular tone. Lab and Diagnostics Result Diagram: 08/23/16 1320 08/23/16 1320 Assessment & Plan Probable persistent or recurrent urinary tract infection, POA. The plan is to resume ceftriaxone and given that she did improve on this initially will anticipate a longer course of IV antibiotics which can likely happen at the [facility] facility. We will await culture results. Her urine dip is somewhat unimpressive. Septic encephalopathy, POA. Plan is to resuscitation with normal saline and antibiotics. Hyperkalemia, POA. The patient will be followed clinically with repeat BMP after gentle fluid resuscitation. No other measures at this time. Probable AK I, POA. Plan is to resuscitation and follow. Chronic dementia, POA. Follow clinically. Patient is full resuscitation, this is confirmed today with her daughter who is power of collections attorney for healthcare She is admitted inpatient status with tonight's stay anticipated. Pain Evaluation: Adequate Pain Control Resuscitation Status: CPR: Attempt Resuscitation Time spent 40 minutes Rogelio Brown MD Aug 23, 2016 18:39
[2016-08-23] MEDS: 0.9% Sodium Chloride 1,000 ML IV SCH (19:16)
[2016-08-23] MEDS: cefTRIAXone Inj 1,000 MG in Dextrose 5% Minibag Plus 50 ML IV SCH (19:46)
--- NOTE | 2016-08-23 20:41 | DRSVH ---
PROCEDURE: X-RAY CHEST ONE VIEW, PORTABLE ([id number]) INDICATIONS: confusion TECHNIQUE: One view of the chest was acquired. COMPARISON: [facility], CR, XR CHEST 1VW (PORTABLE), 08/23/2016, 13:33. FINDINGS: Surgical changes and devices: Sternotomy and cholecystectomy. Lungs and pleura: Bilateral perihilar infiltrates consistent with pulmonary edema secondary to conge stive heart failure. Left basilar opacity may be superimposed pneumonia. There is probable small left pleural effusion. No pneumothorax. Mediastinum: Mediastinal contours appear normal. Heart size is normal. Bones and chest wall: No suspicious bony lesions. Overlying soft tissues appear unremarkable. IMPRESSION: 1. Congestive heart failure. 2. Possible superimposed left basilar pneumonia. Dictated by: Peyton Turpin M.D. on 08/23/2016 at 20:38 Approved by: Peyton Turpin M.D. on 08/23/2016 at 20:40
[2016-08-23 22:13] VITALS: BP 145/52; PULSE 53; RESP 16; O2SAT 96
[2016-08-24] MEDS: Heparin 5,000 Unit/mL Inj SUBQ SCH ×3 (00:30→16:39)
[2016-08-24] MEDS: 0.9% Sodium Chloride 1,000 ML IV SCH (05:20)
[2016-08-24 06:05] VITALS: BP 145/68; PULSE 58; RESP 16; O2SAT 96
--- NOTE | 2016-08-24 06:16 | NUR ---
Shift note Still with little to no verbal response but do have an increase throughout night after family left clearly asked for another blanket and denied pain was incont of B&B but not able to voice known.
[2016-08-24 06:21] LABS: BASOPHILS % (AUTO) 0.6 % (0-3); EOSINOPHILS % (AUTO) 1.9 % (0-5); MONOCYTES % (AUTO) 6.8 % (4-12); Mean Corpuscular Hemoglobin 25.7 pg (27.0-35.0); Mean Corpuscular Volume 82.6 fL (81-100); NEUTROPHILS % (AUTO) 64.7 % (40-74); Platelet Count 178 bil/L (150-400)
--- NOTE | 2016-08-24 10:47 | NUR ---
Evaluation completed. Please go to "Notes" then click on "Assessments and Notes" (bottom left corner of screen). Then select appropriate discipline tab on top of screen.
--- NOTE | 2016-08-24 11:29 | NUR ---
rounds 1040 MD notified that pt is more conversant this am than last evening. remains incontinent. following commands. Md to further assess. MD requests that IV fluids be discontinued at this time. Family at bedside. Will continue to monitor.
--- NOTE | 2016-08-24 12:08 | NUR ---
Status Pt continues to be more interactive and repsonsive this am. Able to get up with FWW with PT and ambulate briefly in [place] and back to chair. Sitting up in chair for lunch. [place] alarm on. Family at bedside. Family educated about speech therapy recommendations of nectar thick liquids/pureed diet with h20 sips and ice between meals. 1:1 feed. Pt reports appetite.
[2016-08-24 12:28] VITALS: BP 154/51; PULSE 64; RESP 14; O2SAT 98
--- NOTE | 2016-08-24 13:35 | PCM.PNMED ---
Subjective Date of Service Aug 24, 2016 Subjective Patient was brought in from assisted facility due to brief altered mental status. Unresponsiveness and lethargy. Spoke with Son-in-law at the bedside. He states patient is now back to her baseline mental status. Patient has some baseline dementia. Nursing reported patient was lethargic last night and improved now. Exam Vital Signs Vital Sign - Last Date Time Temp Pulse Resp B/P Pulse Ox O2 Delivery O2 Flow Rate FiO2 08/24/16 12:28 36.8 64 14 154/51 98 Room Air 08/23/16 18:20 2.00 Intake and Output 08/23/16 08/23/16 08/24/16 Cumulative From/Thru 15:00 23:00 07:00 08/23/16 13:22 - 08/24/16 06:02 Intake Total 1062 ml 1062 ml Balance 1062 ml 1062 ml IV Total 1062 ml 1062 ml # Voids 1 1 # Bowel Movements 1 1 Exam Arousable, able to answer very simple questions intermittently. No distress. Normal skull. Normal nose and ears. Anicteric sclera, symmetric pupils Oropharynx is unremarkable, no facial droop. Neck is supple, normal thyroid. No adenopathy. Lungs are clear, normal effort rate. Heart is regular without murmur gallop or rub. Abdomen soft, nondistended or tender. Extremities are free of pedal edema. Good radial and pedal pulses. Skin is free of rash, lesions. Many ecchymosis on arms and legs . Joints are grossly normal. Cranial nerves are grossly normal. Motor strength, she moves all extremities. Normal muscular tone. IVs and Medications Medications Reviewed: Medications were reviewed in detail Lab and Diagnostics Result Diagram: 08/24/16 0544 08/24/16 0544 Assessment & Plan # Altered mental status/encephalopathy, unknown etiology, POA. -Patient was brought in from assisted facility due to brief altered mental status. Unresponsiveness and lethargy. Spoke with Son-in-law at the bedside. He states patient is now back to her baseline mental status. Patient has some baseline dementia. -Daughter on prior admission insists this is her UTI symptom. Patient has been on antibiotics for > 2weeks. 2 -3 weeks ago Patient initially was confused and PCP in [place] prescribed ciprofloxacin over phone given similar episodes previously. She had some improvement initially but continued to have confusion with hallucinations. Hospitalist 08/17 -08/21. Treated with ceftriaxone for partially treated UTI. Urinalysis with some pyuria, urine culture mixed naz. Patient gradually improved and discharged on her baseline mental status. She now comes with brief unresponsiveness which resolved in few hours. -will get MRI brain . Mention of pacemaker on prior admission of but patient only had bioprosthetic valve replacement -We will also get echocardiogram. Patient refused echocardiogram on prior admission -Discontinued normal saline and continue antibiotics. #Probable persistent or recurrent urinary tract infection, POA. The plan is to resume ceftriaxone and given that she did improve on this initially will anticipate a longer course of IV antibiotics which can likely happen at the assisted facility. -Urinalysis unremarkable, urine culture no growth -procal only 0.14 #Hyperkalemia, POA. Resolved #Probable AK I, POA. Plan is to resuscitation and follow. #Chronic dementia, POA. Follow clinically. Patient is full resuscitation, She is admitted inpatient status Disposition:1-2 days pending workup Resuscitation Status: CPR: Attempt Resuscitation Luis German MD Aug 24, 2016 13:35
--- NOTE | 2016-08-24 14:05 | NUR ---
Evaluation completed. Please go to "Notes" then click on "Assessments and Notes" (bottom left corner of screen). Then select appropriate discipline tab on top of screen.
--- NOTE | 2016-08-24 15:51 | DRSVH ---
PROCEDURE: MRI BRAIN WITHOUT CONTRAST ([id number]) INDICATIONS: recurrent AMS TECHNIQUE: Non-contrast axial T1 spin echo, axial T2 fast spin echo, sagittal and axial FLAIR, coronal T2 fast s pin echo, axial gradient echo, axial diffusion and ADC through the brain. COMPARISON: None. FINDINGS: Image quality: Excellent. CSF spaces: Ventricles appear symmetric in size and shape. Basal cisterns are patent. No extra-axi al fluid collections. Brain: No intracranial bleeds or mass effects. There is cerebral volume loss for age. There are pe riventricular and deep white matter chronic small vessel ischemic changes. Brainstem appears normal. Diffusion-weighted images show no acute ischemic insults. No chronic ischemic insults. Normal int ravascular flow voids are present. Skull and face: Calvarial bone marrow is normal in signal. Orbits are normal. Sinuses: Small amount of left mastoid fluid. Right maxillary sinus retention cyst. Sinuses and masto ids are otherwise clear. IMPRESSION: 1. No acute process. 2. Volume loss and small vessel ischemic disease. Dictated by: Gonzales Jones M.D. on 08/24/2016 at 14:48 Approved by: Gonzales Jones M.D. on 08/24/2016 at 14:50
--- NOTE | 2016-08-24 16:43 | NUR ---
Mental status Pt responsive to questions. Able to give first but not last name. Able to state she is in a hospital. Does not know the year or month. Good appetite. no complaints. Will continue to monitor.
[2016-08-24 17:56] VITALS: PULSE 74; RESP 18; O2SAT 93
--- NOTE | 2016-08-24 17:59 | NUR ---
Respiratory Pt noted to have audible expiratory wheeze up OOB and to chair for dinner. Mild edema to right ankle. Lungs sounds coarse bilaterally. Sats 93% on RA RR 18. Pt seems to be tolerating as she is up eating dinner. notified. to order lasix. Will continue to monitor. Addendum: 08/24/16 at 1801 by CASPER AVILA RN Pt also placed on 2L NC
[2016-08-24 18:30] VITALS: BP 173/65
[2016-08-24] MEDS ORDERED: Furosemide 10 mg/mL 2 mL Inj IV ONE (18:30)
[2016-08-24] MEDS: cefTRIAXone Inj 1,000 MG in Dextrose 5% Minibag Plus 50 ML IV SCH (21:35)
[2016-08-24 22:20] VITALS: BP 168/60; PULSE 65; RESP 17; O2SAT 96
[2016-08-25] VITALS (9 sets, daily range): BP systolic 157–187; BP diastolic 52–82; PULSE 60–72; RESP 16–20; O2SAT 94–97
[2016-08-25] MEDS: Heparin 5,000 Unit/mL Inj SUBQ SCH ×3 (00:30→16:13)
--- NOTE | 2016-08-25 06:48 | NUR ---
Shift note mentation improving used call light but still forgetful to situation did go to BR before bed but this am icont episode of B&B
--- NOTE | 2016-08-25 09:05 | NUR ---
Status notified via page that wheeze seems improved this am. Some minor BLE edema. Last BP 169/57. on RA. notified that pt also has had 3 large loose stills since yesterday afternoon and home meds not ordered. Pt up OOB for breakfast and conversant. Pleasantly confused. [place] alarm on. Addendum: 08/25/16 at 1103 by CASPER AVILA RN [id number] pt placed on precautionary enteric precautions pending collecting of cdiff specimen. No stool yet this shift. Will monitor.
[2016-08-25 10:13] LABS: BASOPHILS % (AUTO) 0.8 % (0-3); EOSINOPHILS % (AUTO) 4.7 % (0-5); MONOCYTES % (AUTO) 6.1 % (4-12); Mean Corpuscular Hemoglobin 25.6 pg (27.0-35.0); Mean Corpuscular Volume 81.1 fL (81-100); NEUTROPHILS % (AUTO) 69.3 % (40-74); Platelet Count 128 bil/L (150-400)
[2016-08-25] MEDS ORDERED: Furosemide 10 mg/mL 2 mL Inj IVPUSH ONE (10:30)
[2016-08-25 10:48] LABS: Magnesium 2.4 mg/dL (1.6-2.6); TROPONIN T 0.01 ug/L (0.0-0.011)
--- NOTE | 2016-08-25 11:35 | NUR ---
BP notified of BP 175/73. Lasix given and awaiting urination will continue to monitor.
--- NOTE | 2016-08-25 12:46 | DRSVH ---
[facility] [address] [place] [address] Echocardiogram Report Name: GILBERT GALLARDO te: 08/25/2016 Height: 57 in Hospital Exam Location: [facility] Weight: 116 lb Gender: Female BSA: 1.4 m2 : 1930 Age: 86 yrs BP: 154/51 mmHg Reason For Study: Congestive Heart Failure Ordering Physician: Performed By: Lydia [facility]Sher[facility] Interpretation Summary The patient was in normal sinus rhythm during the exam. The left ventricle is normal in size. There is mild-moderate concentric left ventricular hypertrophy. The ejection fraction is estimated to be 65-70%. There is severe mitral annular calcification. The mitral valve leaflets appear significantly thickened. There is severe non-rhumatic mitral stenosis. There is moderate mitral regurgitation. There is a bioprosthetic aortic valve. Bioprosthetic leaflets are thickened and motion is restricted. There is severe aortic stenosis. There is moderate-severe pulmonary hypertension. The right ventricular systolic pressure is estimated at 59 mmHg assuming a right atrial pressure of 3 mm Hg. There is no prior echocardiogram noted for this patient. No other echocardiographic abnormalities seen. Procedure: A two-dimensional transthoracic echocardiogram with color flow and Doppler was performed. The study quality was technically adequate. There is no prior echocardiogram noted for this patient. The patient was in normal sinus rhythm during the exam. Left Ventricle: The left ventricle is normal in size. There is mild- moderate concentric left ventricular hypertrophy. The ejection fraction is estimated to be 65-70%. There are no focal wall motion abnormalities. Diastolic function could not be accurately assessed due to confounding valvular disease. Right Ventricle: The right ventricle is normal in size, thickness and function. Atria: The left atrium is moderately dilated. The right atrium is mildly dilated. The interatrial septum is intact with no evidence for an atrial septal defect. Mitral Valve: There is severe mitral annular calcification. The mitral valve leaflets appear significantly thickened, but open well. There is severe mitral stenosis. There is moderate mitral regurgitation. Aortic Valve: There is a bioprosthetic aortic valve. Bioprosthetic leaflets are thickened and motion is restricted. The calculated aortic valve area is 0.6 cm2. The peak aortic velocity is 4.4 m/sec. The aortic valve mean gradient is 48 mmHg. Severity ratio is 0.23. There is severe aortic stenosis. There is trace aortic regurgitation. Tricuspid Valve: The tricuspid valve leaflets are thin and pliable. There is mild tricuspid regurgitation. The right ventricular systolic pressure is estimated at 59 mmHg assuming a right atrial pressure of 3 mm Hg. There is moderate-severe pulmonary hypertension. Pulmonic Valve: The pulmonic valve is normal in structure and function. There is trace pulmonic regurgitation. Great Vessels: The aortic root is normal size. The dimensions of the ascending aorta are normal. The IVC is of normal diameter and collapses greater than 50% with a sniff. This suggests a low right atrial pressure of 3 mm Hg. Pericardium/ Pleura There is no pericardial effusion. There is no pleural effusion. MMode/2D Measurements & Calculations LVIDd: 4.3 cm LA dimension: 4.6 cm RA long axis LVOT diam: 1.8 cm LVIDs: 2.8 cm AoV Opening FS: 34.6 % LA A2 area: 28.9 cm RA area IVSd: 1.1 cm LA A4 area: 26.3 cm Aortic Jxn: 2.0 cm LVPWd: 1.0 cm LA length (vol) : 18.3 cm asc Aorta Diam RA vol LA vol: 100.7 ml : 57.3 ml Ao Arch Diam (Prox LA vol index RA Trans): 2.3 cm : 40.2 mm/ RVDd major IVC diam: 1.5 cm : 4.4 cm LV hutton. diameter/BSA LV sys. diameter/BSA RVD1 (basal) (cm/m^2): 3.0 (cm/m^2): 2.0 Doppler Measurements & Calculations Ao V2 max MV E max yoav MV E/A: 1.9 TR max yoav : 446.1 cm/sec : 298.1 cm/sec Med Peak E' Yoav : 372.9 cm/sec Ao max PG MV A max yoav TR max PG : 79.6 mmHg : 156.3 cm/sec E/E' med: 100.6 : 55.6 mmHg Ao mean PG MV P1/2t: 67.8 msec Lat Peak E' Yoav PA V2 max : 48.4 mmHg MVA(VTI): 0.89 cm2 : 143.9 cm/sec LVOT Max Yoav E/E' lat: 46.6 PA mean PG : 90.7 cm/sec E/e' average KARINE(I,D) PA Accel Time : 0.58 cm : 0.13 sec sev ratio MV V2 mean MV P1/2t max yoav Ao V2 mean LV V1 max PG : 141.9 cm/sec : 331.7 cm/sec MV mean PG Ao V2 VTI LV V1 VTI : 10.4 mmHg MVA(P1/2t): 3.2 cm2 : 120.2 cm : 27.9 cm MV V2 VTI KARINE(V,D): 0.51 cm2 MV dec time : 0.20 sec PA V2 mean KARINE indexed to BSA : 91.6 cm/sec (cm^2/m^2): 0.41 Reading Physician:12:[id number] PM
--- NOTE | 2016-08-25 13:41 | PCM.PNMED ---
Subjective Date of Service Aug 25, 2016 Subjective Mentation improved and patient at baseline. She had some dyspnea yesterday. Crackles on chest exam and chest x-ray was evidence of congestion. Lasix 20 mg IV was given and improved. Patient had 3 episodes of loose stool. C. difficile requested. Exam Vital Signs Vital Sign - Last Date Time Temp Pulse Resp B/P Pulse Ox O2 Delivery O2 Flow Rate FiO2 08/25/16 11:31 36.8 175/73 08/25/16 09:35 67 20 94 Room Air 08/23/16 18:20 2.00 Intake and Output 08/24/16 08/24/16 08/25/16 Cumulative From/Thru 15:00 23:00 07:00 08/23/16 13:22 - 08/25/16 06:48 Intake Total 970 ml 179 ml 2211 ml Balance 970 ml 179 ml 2211 ml Intake Oral 520 ml 118 ml 638 ml IV Total 450 ml 61 ml 1573 ml # Voids 2 2 5 # Bowel Movements 1 1 2 5 Exam Gen. patient is lying comfortably in hospital bed HEENT: Head is normocephalic atraumatic, Pupils equal and reactive, extraocular movements intact, Lungs basal crackles Heart regular rate and rhythm,GIII systolic murmur at LLSB Abdomen soft nontender without hepatosplenomegaly Extremities pulses are present dorsalis pedis posterior tibialis and radial. Skin is warm and dry there are no rashes, Psych alert and oriented to person place and time. Mental status much improved Neuro cranial nerves II through XII are grossly intact Lymph: There is no lymphadenopathy appreciated in the cervical supra infraclavicular regions : no garcia IVs and Medications Medications Reviewed: Medications were reviewed in detail Lab and Diagnostics Result Diagram: 08/25/1653 08/25/16 0953 X-Rays, CTs and MRIs PROCEDURE: MRI BRAIN WITHOUT CONTRAST ([id number]) INDICATIONS: recurrent AMS TECHNIQUE: Non-contrast axial T1 spin echo, axial T2 fast spin echo, sagittal and axial FLAIR, coronal T2 fast spin echo, axial gradient echo, axial diffusion and ADC through the brain. COMPARISON: None. FINDINGS: Image quality: Excellent. CSF spaces: Ventricles appear symmetric in size and shape. Basal cisterns are patent. No extra-axial fluid collections. Brain: No intracranial bleeds or mass effects. There is cerebral volume loss for age. There are periventricular and deep white matter chronic small vessel ischemic changes. Brainstem appears normal. Diffusion-weighted images show no acute ischemic insults. No chronic ischemic insults. Normal intravascular flow voids are present. Skull and face: Calvarial bone marrow is normal in signal. Orbits are normal. Sinuses: Small amount of left mastoid fluid. Right maxillary sinus retention cyst. Sinuses and mastoids are otherwise clear. IMPRESSION: 1. No acute process. 2. Volume loss and small vessel ischemic disease. Dictated by: Gonzales Jones M.D. on 08/24/2016 at 14:48 PROCEDURE: X-RAY CHEST ONE VIEW, PORTABLE ([id number]) INDICATIONS: confusion IMPRESSION: 1. Congestive heart failure. 2. Possible superimposed left basilar pneumonia. Dictated by: Peyton Turpin M.D. on 08/23/2016 at 20:38 PROCEDURE: CT BRAIN WITHOUT CONTRAST ([id number]) INDICATIONS: Acute mental status changes. IMPRESSION: 1. No acute intracranial hemorrhage. 2. Extensive chronic small vessel ischemic changes and moderate parenchymal volume loss. Dictated by: Brennan Dias M.D. on 08/23/2016 at 14:26 Cardiac Echo Impressions Interpretation Summary The patient was in normal sinus rhythm during the exam. The left ventricle is normal in size. There is mild-moderate concentric left ventricular hypertrophy. The ejection fraction is estimated to be 65-70%. There is severe mitral annular calcification. The mitral valve leaflets appear significantly thickened. There is severe non-rhumatic mitral stenosis. There is moderate mitral regurgitation. There is a bioprosthetic aortic valve. Bioprosthetic leaflets are thickened and motion is restricted. There is severe aortic stenosis. There is moderate-severe pulmonary hypertension. The right ventricular systolic pressure is estimated at 59 mmHg assuming a right atrial pressure of 3 mm Hg. There is no prior echocardiogram noted for this patient. No other echocardiographic abnormalities seen. Assessment & Plan 86-year-old lady with past medical history of recurrent UTI, recent hospitalization for AMS due to suspected UTI was brought in for brief unresponsiveness. # Altered mental status/encephalopathy, unknown etiology, POA. -[facility] altered mental status. Unresponsiveness and lethargy. Spoke with Son-in-law at the bedside. He states patient is now back to her baseline mental status. Patient has some baseline dementia. -Daughter on prior admission insisted this is her UTI symptom. Patient has been on antibiotics for > 2weeks. 2 -3 weeks ago Patient initially was confused and PCP in [place] prescribed ciprofloxacin over the phone given similar episodes previously. She had some improvement initially but continued to have confusion with hallucinations. Hospitalized at [facility] 08/17 -08/21. Treated with ceftriaxone for partially treated UTI. Urinalysis with some pyuria , urine culture mixed naz. Patient gradually improved and discharged on her baseline mental status. She now comes with brief unresponsiveness which resolved in few hours. -MRI brain negative for acute pathology . Mention of pacemaker on prior admission of but patient only had bioprosthetic valve replacement - echocardiogram severe MS and severe .EF 65-70% -Discontinued normal saline and continue antibiotics. # Probable recurrent urinary tract infection, POA. -Urinalysis unremarkable, urine culture no growth -Continue ceftriaxone for now. I do not think she has infection. Consider discontinuing ceftriaxone tomorrow -procal only 0.14 # Suspected Acute on chronic diastolic CHF/severe and severe MS -Patient on lisinopril, Lasix at home -Will start low-dose metoprolol - She had some dyspnea 08/24. Crackles on chest exam and chest x-ray was evidence of congestion. Lasix 20 mg IV was given and improved. Another dose of Lasix IV 20 given today 08/25. resumed on Lasix 20 mg by mouth daily - echocardiogram severe MS and severe .EF 65-70% # Acute diarrhea -C. difficile requested given recent multiple antibiotic courses -C. difficile unlikely but possible. Hold off empiric treatment. Continue ceftriaxone # Uncontrolled hypertension -Partly because of holding home medications initially. Patient was started on amlodipine on recent hospitalization for uncontrolled hypertension. Increased dose of lisinopril from 10 mg to 20 mg daily and added metoprolol 25 mg by mouth daily #Hyperkalemia, POA. Resolved #Probable RANDEE, POA. Improved #Chronic dementia, POA. Follow clinically. Patient is full resuscitation, She is admitted inpatient status Disposition: Possible discharge 1-2 days off antibiotics Resuscitation Status: CPR: Attempt Resuscitation Luis German MD Aug 25, 2016 13:41
[2016-08-25] MEDS: MeTOProlol XL 25 mg ER24 Tablet PO SCH (16:01)
--- NOTE | 2016-08-25 17:26 | NUR ---
Social Work Note: Attempted Initial Assessment Data& Assessment: EMR reviewed. Sil Aragon is a 86 year old female admitted on 08/23/2016 for altered mental status. Pt has [facility] and does not have a PCP identified. Pt lives in [place]. SW attempted to meet with pt at bedside to complete initial assessment. Pt was not alert and oriented. Per RN, pt mentation was clearer this morning, but this afternoon she became more confused. SW to follow up with Pt daughter regarding initial assessment and final PT recommendations pending MD orders. SW to continue to follow. Plan: SW to follow up with Pt daughter regarding initial assessment and final PT recommendations pending MD orders. SW to continue to follow. ALFONSO Chamberlain
--- NOTE | 2016-08-25 18:17 | NUR ---
Status/VS notified last BP 165/52, sats 97 RA, low grade temp 99.1. only 1 loose stool today. pt family at bedside as pt has been sad and more impulsive this afternoon. up in chair eating dinner. jose alarm on. remains incontinent of bowel/bladder. keeping clean and dry. CV status stable
[2016-08-25] MEDS: cefTRIAXone Inj 1,000 MG in Dextrose 5% Minibag Plus 50 ML IV SCH (21:17)
[2016-08-26] VITALS (8 sets, daily range): BP systolic 144–176; BP diastolic 55–69; PULSE 51–65; RESP 15–18; O2SAT 93–100
[2016-08-26] MEDS: Heparin 5,000 Unit/mL Inj SUBQ SCH ×3 (00:20→17:32)
--- NOTE | 2016-08-26 03:37 | NUR ---
BP/Blood sugar/VT pt BP at 2200 was 160/82 w/HR 62.Pt asymptomatic; BS 195. administered Glipizide. paged EZEQUIEL hospitalist. technical operator called at 0150 for 7 beats of VT W/HR 100. This RN went and checked pt. Pt was awake and removed one of the lead off. checked VS and found BP 151/62 w/HR 65, and O2 sat. 88% on RA. Administered 2L O2 via NC; O2 sat increased to 93%. Hospitalist notified about the VT. pt verbal in more Canadian and little Sami. pt doesn't know day/date and where she is, didn't use call light until this time of the shift. posy alarm on for safety. will continue to monitor and provide care. Addendum: 08/26/16 at 0729 by SAVANNAH BELLA RN pt unable to open her eyes and mouth. pt unresponsive with sternal rub (pain), except while calling name and touching pt mumble. VS okay with BP 170/60S, t 99.1. Tele, SB 57 with 1st degree AV block. BS 83. pupil equal and reactive to light. no tongue deviation. pt arm fall at the same time when lift up. León, the emergency manager also saw pt. report gave to day shift RN.
--- NOTE | 2016-08-26 10:27 | NUR ---
Social Work Note: Continued Discharge Planning Data& Assessment: SW attempted to contact pt daughter to discuss discharge planning and complete initial assessment. Pt daughter was unavailable for the next hour, but her took down SW phone number for pt daughter to call back when possible. SW did confirm pt came from [facility] [place] and anticipated return back to [facility] when medically ready pending medical progression and MD orders. SW to continue to follow. Plan: Anticipated return back to [facility] when medically ready pending medical progression and MD orders. SW to follow up with pt daughter Bobbi to discuss discharge planning and complete initial assessment. SW to continue to follow. ALFONSO Chamberlain
[2016-08-26] MEDS: MeTOProlol XL 25 mg ER24 Tablet PO SCH (10:47)
--- NOTE | 2016-08-26 11:06 | NUR ---
ZIYAD: SAP FUNCTIONAL ANALYST to follow up with patient's daughter and she will go over ZIYAD with her as well. Patient is unable to accept ZIYAD at this time.
--- NOTE | 2016-08-26 13:37 | PCM.PNMED ---
Subjective Date of Service Aug 26, 2016 Subjective Denies any complaints or discomfort but ROS limited 2ndry to patient's apparent confusion and lethargy Exam Vital Signs Vital Sign - Last Date Time Temp Pulse Resp B/P Pulse Ox O2 Delivery O2 Flow Rate FiO2 08/26/16 10:25 58 08/26/16 10:00 37.2 15 176/64 98 Nasal Cannula 2.00 Intake and Output 08/25/16 08/25/16 08/26/16 Cumulative From/Thru 15:00 23:00 07:00 08/23/16 13:22 - 08/26/16 06:57 Intake Total 623 ml 100 ml 2934 ml Output Total 400 ml 375 ml 775 ml Balance 223 ml -275 ml 2159 ml Intake Oral 623 ml 100 ml 1361 ml IV Total 1573 ml Output Urine Total 400 ml 375 ml 775 ml # Voids 3 3 11 # Bowel Movements 1 2 8 Exam appears sleepy but easily opens eyes to her name. Seems disoriented even to herself and says doesn't remember her own name General: No Acute Distress Head: Normal Eyes: PERRLA, EOMI, Scleral Anicteric Nose: Mucous Membr Moist/Natural Steps Mouth: Mucous Membr Moist/Natural Steps Neck: Supple Chest & Lungs: Clear to auscultation & percussion Cardiovascular: Regular Rate/Rhythm Abdomen: Non-tender, Non-distended, Normoactive bowel tones, Soft Extremities: No cyanosis/clubbing/edma bilat Neurological: Cranial Nerves 2-12 Intact IVs and Medications Medications Reviewed: Medications were reviewed in detail Lab and Diagnostics Result Diagram: 08/25/16 0953 08/25/16 0953 X-Rays, CTs and MRIs PROCEDURE: MRI BRAIN WITHOUT CONTRAST ([id number]) INDICATIONS: recurrent AMS TECHNIQUE: Non-contrast axial T1 spin echo, axial T2 fast spin echo, sagittal and axial FLAIR, coronal T2 fast spin echo, axial gradient echo, axial diffusion and ADC through the brain. COMPARISON: None. FINDINGS: Image quality: Excellent. CSF spaces: Ventricles appear symmetric in size and shape. Basal cisterns are patent. No extra-axial fluid collections. Brain: No intracranial bleeds or mass effects. There is cerebral volume loss for age. There are periventricular and deep white matter chronic small vessel ischemic changes. Brainstem appears normal. Diffusion-weighted images show no acute ischemic insults. No chronic ischemic insults. Normal intravascular flow voids are present. Skull and face: Calvarial bone marrow is normal in signal. Orbits are normal. Sinuses: Small amount of left mastoid fluid. Right maxillary sinus retention cyst. Sinuses and mastoids are otherwise clear. IMPRESSION: 1. No acute process. 2. Volume loss and small vessel ischemic disease. Dictated by: Gonzales Jones M.D. on 08/24/2016 at 14:48 PROCEDURE: X-RAY CHEST ONE VIEW, PORTABLE ([id number]) INDICATIONS: confusion IMPRESSION: 1. Congestive heart failure. 2. Possible superimposed left basilar pneumonia. Dictated by: Peyton Turpin M.D. on 08/23/2016 at 20:38 PROCEDURE: CT BRAIN WITHOUT CONTRAST ([id number]) INDICATIONS: Acute mental status changes. IMPRESSION: 1. No acute intracranial hemorrhage. 2. Extensive chronic small vessel ischemic changes and moderate parenchymal volume loss. Dictated by: Brennan Dias M.D. on 08/23/2016 at 14:26 Cardiac Echo Impressions Interpretation Summary The patient was in normal sinus rhythm during the exam. The left ventricle is normal in size. There is mild-moderate concentric left ventricular hypertrophy. The ejection fraction is estimated to be 65-70%. There is severe mitral annular calcification. The mitral valve leaflets appear significantly thickened. There is severe non-rhumatic mitral stenosis. There is moderate mitral regurgitation. There is a bioprosthetic aortic valve. Bioprosthetic leaflets are thickened and motion is restricted. There is severe aortic stenosis. There is moderate-severe pulmonary hypertension. The right ventricular systolic pressure is estimated at 59 mmHg assuming a right atrial pressure of 3 mm Hg. There is no prior echocardiogram noted for this patient. No other echocardiographic abnormalities seen. Assessment & Plan 86-year-old lady with past medical history of recurrent UTI, recent hospitalization for AMS due to suspected UTI was brought in for brief unresponsiveness. She was brought in from intermediate facility due to brief altered mental status. Unresponsiveness and lethargy. Patient has some baseline dementia. # Acute altered mental status/encephalopathy, unknown etiology, present on admission. Ongoing and intermittent -MRI brain negative for acute pathology . -Echocardiogram severe MS and severe . EF 65-70% -Stop antibiotics given no clear source of infection at this time. # Probable recurrent urinary tract infection suspected on admission. Ruled out with negative urine culture. -Urinalysis unremarkable, urine culture no growth -Stop Ceftriaxone # Suspected Acute on chronic diastolic CHF/severe and severe MS -Patient on lisinopril, Lasix at home -Continue with low-dose metoprolol started earlier during this admission -She had some dyspnea 08/24. Crackles on chest exam and chest x-ray was evidence of congestion. Lasix 20 mg IV was given and improved. Another dose of Lasix IV 20 given today 08/25. resumed on Lasix 20 mg by mouth daily -Echocardiogram severe MS and severe .EF 65-70% # Acute diarrhea. Not present on admission. Improved. -C. difficile negative # History of hypertension. Poorly controlled and present on admission. Ongoing -Partly because of holding home medications initially. Patient was started on amlodipine on recent hospitalization for uncontrolled hypertension. -Increased dose of lisinopril from 10 mg to 20 mg daily and added metoprolol 25 mg by mouth daily # Acute hyperkalemia, present on admission. Resolved # Acute kidney injury. present on admission. -Resolved. # Chronic dementia, present on admission. Ongoing and appears acutely worse -Continue with supportive care # Goals of care -Consider palliative care consult in am if mental status does not improve Dispo: 2-3 days pending workup of encephalopathy and altered mental status. Resuscitation Status: CPR: Attempt Resuscitation Edgardo Ayoub Aug 26, 2016 13:37
--- NOTE | 2016-08-26 13:52 | NUR ---
Somnolence Pt. very somnolent this morning arousable to pain and repeated verbal stimuli. Hypertensive with BP 170/61. Other vitals stable and BG in 80s. paged. At 1015 pt. suddenly woke up and began eating her breakfast with no complaints. OrientedX3. TERRI. notified of change. Will continue to monitor.
--- NOTE | 2016-08-26 16:17 | NUR ---
ZIYAD Verbal consent, pt daughter was not able to come to pt bedside this afternoon to sign physically. ALFONSO Chamberlain
--- NOTE | 2016-08-26 16:21 | NUR ---
Social Work Note: Initial Assessment Data& Assessment: EMR reviewed. SW spoke with pt daughter Bobbi via t/c to discuss pt baseline information and discharge planning, SW role explained. Sil Aragon is a 86 year old female admitted on 08/23/2016 for altered mental status. Pt came from [facility] as a rehab patient, pt daughter confirmed that the plan is for pt to return for continued rehab when medically ready. SW provided access to [facility] and confirmed they will be able to accept her back at time of discharge. Pt does not have HH hx. Pt does not have LT insurance or VA benefits. Pt uses a walker at baseline. Pt does have dementia per pt daughter, however she is more alert and oriented than her current mentation at baseline. Pt daughter does have DPOA paperwork at home and is going to have it completed when pt medically improves. Pt daughter also provided with information for [facility] in efforts to get pt established with a local insurance provider. Pt daughter denies any other questions at this time. SW to continue to follow. Plan: Anticipated discharge back to [facility] when medically ready for continued rehab stay. Pt daughter denies any other questions at this time. SW to continue to follow. ALFONSO Chamberlain Addendum: 08/26/16 at 1625 by YANCY BRICE Amended: Links added.
[2016-08-27] VITALS (7 sets, daily range): BP systolic 132–159; BP diastolic 53–67; PULSE 51–66; RESP 14–16; O2SAT 94–99
[2016-08-27] MEDS: Heparin 5,000 Unit/mL Inj SUBQ SCH ×3 (00:23→16:30)
--- NOTE | 2016-08-27 06:32 | NUR ---
NOC PT alert earlier in the shift and oriented to self and situation only. PT ambulated to BR with a 1 person SBA and FWW. Through the night pt became increasingly somnulent again. THis am we were unable to administer pt synthroid due to somnulence. PT continues to have diarrhea and had 2 episode last night. BOth times pt was incontinent. Urel cream applied to bilateral groin area where there is some skin breakdown noted. PT HR remains mostly in NSR with some episodes of bradycardia. Audible murmur noted. Trigg alarm on, although pt has made no attempts to get OOB independently. Plan for dc to SNF when appropriate. WILL CTM pt mentation.
[2016-08-27 07:06] LABS: BASOPHILS % (AUTO) 0.6 % (0-3); EOSINOPHILS % (AUTO) 2.4 % (0-5); MONOCYTES % (AUTO) 9.4 % (4-12); Mean Corpuscular Hemoglobin 25.4 pg (27.0-35.0); Mean Corpuscular Volume 83.3 fL (81-100); NEUTROPHILS % (AUTO) 54.6 % (40-74); Platelet Count 167 bil/L (150-400)
[2016-08-27 07:45] LABS: INR 0.89 ratio
[2016-08-27 07:52] LABS: Magnesium 2.5 mg/dL (1.6-2.6)
[2016-08-27] MEDS: MeTOProlol XL 25 mg ER24 Tablet PO SCH (08:22)
[2016-08-27] MEDS ORDERED: Dextrose 5% 1,000 ML IV ONE (13:35)
--- NOTE | 2016-08-27 14:40 | NUR ---
Palliative care note D/A: Referral received this afternoon from Dr. Ayoub, seeking assistance regarding goals of care for this pt. Pt is a 86 year old female, recently to this area from [place]. Pt dtr Bobbi and [place] are very involved in her care and can be reached at [phone] or [phone]. Pt was very recently in the hospital where she experienced AMS and is doing so again this admit. She has a history of dementia. Between admit earlier this August and current admit, pt has been at [facility] for rehab. P: Palliative care to follow. Jenny GARCIA, CCM
--- NOTE | 2016-08-27 15:31 | PCM.CONPAL ---
Date of Service Aug 27, 2016 Date of Hospital Admission: Aug 23, 2016 at 17:13 Date of Palliative Consult: Aug 27, 2016 Requesting Provider: Edgardo Ayoub Reason Palliative Care Consult: Goals of Care Discussion Reason for Consultation Referral received this afternoon from Dr. Ayoub, seeking assistance regarding goals of care for this pt. Pt is a 86 year old female, relocated from [place] 2 years ago. Pt dtr Bobbi and von Yoni are very involved in her care and can be reached at (home): [phone] or (cell): [phone]. Pt was very recently in the hospital where she experienced AMS and is doing so again this admit. She has a history of dementia. Between admit earlier this August and current admit, pt has been at [facility] for rehab. Hospital Unit @time of consult: Other ([facility] Room 239-2 (window bed)) Palliative Care Recommendation Summary of palliative recommendations: -Symptom management (Pain/other): per Green Team Hospitalist Dr. Ayoub. -DPOA/Advanced Directives/POLST: Dr. Guillaume, Deloris Saenz met with patient and patient's daughter, Bobbi Aragon. Pt is mildly demented and speaks only Lao. Daughter is bilingual. (We were unable to obtain eyelet punch operator for the meeting, although we tried to get one). Bobbi reports that her mother does pretty well getting around the house with her FWW at baseline, when she is not sick with an infection. Her mom is usually alone during the days for about 4 hours, then another member of Bobbi's family is home with her. When asked about code status, Bobbi reports that she knows doing CPR/giving shocks to her mother's heart is not likely to work out well, given Mom's age. However, she knows what her mother would want, if she could advocate for herself. Her mother is a devout Holiness, and had often talked about wanting to be kept alive by any means possible until God took her. Bobbi feels that her Mother would want FULL CODE even though Bobbi would not want that for her personal choice. Bobbi is merely defending what she believes would be her mother' s choice, if her mother's mind was working better. Dr. Guillaume counseled Bobbi on the probability of future difficulties with her mother's swallow as a part of the natural course of dementia. Bobbi didn't know about the risks of aspiration pneumonia and that this was common in dementia. Many questions asked and answered. A New POLST was not completed as family continues to desire FULL CODE for their loved one Mrs. Sil Aragon. -Prognosis: given Sil's current physical state and her ability to perform some ADLS and her ability to walk with a FWW, she is not eligible for hospice care at this time. She is likely to have recurrent UTIs, PNAs but given no new medical crisis, she could live 5-10 years or more. -Family/emotional support: excellent care in home by daughter Bobbi and her Yoni. -Spiritual support: devout Holiness patient. Palliative Care Team will sign off this case as family's goals for patient are clear and patient will likely discharge today. Thank you for the consult. Problems: Resuscitation Status Resuscitation Status: CPR: Attempt Resuscitation POLST Updates/Changes Previous POLST?: No POLST Review Outcome: No Change Pt History History of Present Illness This is a 86-year-old female who was in the hospital 08/17-08/21/16 for AMS and is readmitted 08/23/16 for AMS probably due to a Urinary Tract Infection. She was at [facility], walking and talking at or near her baseline, then on day of admission she became lethargic, much less arousable and unable to speak or walk. No fevers or chills are reported. All history is from her daughter. There was no report of diarrhea however she does have a long history of fecal incontinence. In the ED she had fairly normal laboratories except for a mild hyperkalemia. She had RANDEE and hyperkalemia on her previous admission. Hospital Course: she was treated with antibiotics until her UC came back negative and then they were stopped. She continues to have intermittent confusion suggestive of AMS/encephalopathy. Her hyperkalemia has been resolved with medical treatment. Her hypertension is being monitored. She has some diarrhea, but is C.diff negative. Her CHF has been controlled with gentle diuresis. Overall, she has gradually improved each day. Past Medical History Significant PMH Noted: Recurrent urinary tract infection Dementia Hypertension Recent acute kidney injury with hyperkalemia Bioprosthetic valve replacement Chronic anemia Surgical History Bioprosthetic valve replacement, 2009 Cholecystectomy Family History Not obtainable due to encephalopathy,dementia Social History Pt is nonsmoker, nondrinker and resides at home with daughter and her family where she remains independent with basic ADLS. Pt does not drive and uses a fww at baseline. Pt has HH and SNF history in [place]. Pt has been living in [place] for the last 16 months and family provides care at home. Pt has completed DPOA/advanced directive in [place], daughter requesting form from this admission,which has been provided. Medications Current Medications: Current Medications Glipizide 2.5 mg HS PO Last administered on 08/26/16 21:05; Admin Dose 2.5 MG; Start 08/25/16 at 21:00 Memantine 5 mg HS PO Last administered on 08/26/16 21:05; Admin Dose 5 MG; Start 08/25/16 at 21:00 Olanzapine 2.5 mg HS PO Last administered on 08/26/16 21:04; Admin Dose 2.5 MG ; Start 08/25/16 at 21:00 Lisinopril 10 mg DAILY PO; Start 08/26/16 at 08:30; Stop 08/26/16 at 08:30; Status DC Lisinopril 20 mg DAILY PO Last administered on 08/27/16 08:23; Admin Dose 20 MG ; Start 08/26/16 at 08:30 Levothyroxine Sodium 25 mcg 0630 PO Last administered on 08/27/16 08:23; Admin Dose 25 MCG; Start 08/26/16 at 06:30 Scheduled Amlodipine (Amlodipine) 5 Mg Tablet 10 MG PO DAILY Aspirin (Aspirin) 81 Mg Tablet 81 MG PO QAM Benazepril (Benazepril) 10 Mg Tablet 10 MG PO QAM Cephalexin (Keflex) 500 Mg Capsule 500 MG PO TID Cholecalciferol (Vitamin D3) (Vitamin D3) 2,000 Unit Tablet 2,000 UNIT PO QAM Ferrous Sulfate (Ferrous Sulfate) 325 Mg Tablet 325 MG PO Q48H Furosemide (Furosemide) 20 Mg Tab 10 MG PO QAM Glipizide (Glipizide) 5 Mg Tablet 2.5 MG PO HS Levothyroxine (Levothyroxine) 25 Mcg Tablet 25 MCG PO QAM Loperamide HCl (Imodium A-D) 2 Mg Capsule 2 MG PO QAM Memantine (Namenda) 10 Mg Tablet 5 MG PO HS Olanzapine (Olanzapine) 2.5 Mg Tablet 2.5 MG PO HS Scheduled PRN Acetaminophen (Acetaminophen) 325 Mg Tablet 650 MG PO Q4H PRN PRN For Fever Objective Findings Exam Vital Sign - Last Date Time Temp Pulse Resp B/P Pulse Ox O2 Delivery O2 Flow Rate FiO2 08/27/16 12:33 37.0 55 16 132/62 96 Room Air 08/27/16 04:07 1.00 Intake and Output 08/26/16 08/26/16 08/27/16 Cumulative From/Thru 15:00 23:00 07:00 08/23/16 13:22 - 08/27/16 04:12 Intake Total 660 ml 400 ml 3994 ml Output Total 1 ml 776 ml Balance 659 ml 400 ml 3218 ml Intake Oral 640 ml 400 ml 2401 ml IV Total 1573 ml Tube Irrigant 20 ml 20 ml Output Urine Total 775 ml Urine/Stool Mix 1 ml 1 ml # Voids 4 1 16 # Bowel Movements 2 2 12 General: Alert, Oriented, Person, No acute distress HEENT: Atraumatic, PERRLA, EOMI, Scleral Anicteric, Mucous Membr Moist/[place] Lungs: Clear to Auscultation Abdomen: Soft, Non Tender Neuro: Exam Intact Extremities: Warm, No Edema Lab/Diagnostics Lab and Imaging results reviewed in detail in EMR. Time spent Time: 50 minutes; >50% face to face with patient and/or family, providing counselling regarding plans and recommendations, and in care coordination with his/her medical teams. I also spent an additional 30 minutes counseling for advanced care planning with the patient/the patients family/the surrogate decision maker. Total time: 80 minutes Nena Guillaume MD Aug 27, 2016 15:31
--- NOTE | 2016-08-27 17:38 | PCM.PNMED ---
Subjective Date of Service Aug 27, 2016 Subjective Denies any complaints or discomfort Exam Vital Signs Vital Sign - Last Date Time Temp Pulse Resp B/P Pulse Ox O2 Delivery O2 Flow Rate FiO2 08/27/16 12:33 37.0 55 16 132/62 96 Room Air 08/27/16 04:07 1.00 Intake and Output 08/26/16 08/26/16 08/27/16 Cumulative From/Thru 15:00 23:00 07:00 08/23/16 13:22 - 08/27/16 04:12 Intake Total 660 ml 400 ml 3994 ml Output Total 1 ml 776 ml Balance 659 ml 400 ml 3218 ml Intake Oral 640 ml 400 ml 2401 ml IV Total 1573 ml Tube Irrigant 20 ml 20 ml Output Urine Total 775 ml Urine/Stool Mix 1 ml 1 ml # Voids 4 1 16 # Bowel Movements 2 2 12 Exam more awake and alert today. She seems oriented x 3. General: No Acute Distress Head: Normal Eyes: PERRLA, EOMI, Scleral Anicteric Nose: Mucous Membr Moist/[place] Mouth: Mucous Membr Moist/[place] Neck: Supple Chest & Lungs: Clear to auscultation bilat Cardiovascular: Regular Rate/Rhythm Abdomen: Non-tender, Non-distended, Normoactive bowel tones, Soft Extremities: No cyanosis/clubbing/edema bilat Neurological: Cranial Nerves 2-12 Intact IVs and Medications Medications Reviewed: Medications were reviewed in detail Lab and Diagnostics Result Diagram: 08/27/1663508/27/16 0636 X-Rays, CTs and MRIs PROCEDURE: MRI BRAIN WITHOUT CONTRAST ([id number]) INDICATIONS: recurrent AMS TECHNIQUE: Non-contrast axial T1 spin echo, axial T2 fast spin echo, sagittal and axial FLAIR, coronal T2 fast spin echo, axial gradient echo, axial diffusion and ADC through the brain. COMPARISON: None. FINDINGS: Image quality: Excellent. CSF spaces: Ventricles appear symmetric in size and shape. Basal cisterns are patent. No extra-axial fluid collections. Brain: No intracranial bleeds or mass effects. There is cerebral volume loss for age. There are periventricular and deep white matter chronic small vessel ischemic changes. Brainstem appears normal. Diffusion-weighted images show no acute ischemic insults. No chronic ischemic insults. Normal intravascular flow voids are present. Skull and face: Calvarial bone marrow is normal in signal. Orbits are normal. Sinuses: Small amount of left mastoid fluid. Right maxillary sinus retention cyst. Sinuses and mastoids are otherwise clear. IMPRESSION: 1. No acute process. 2. Volume loss and small vessel ischemic disease. Dictated by: Gonzales Jones M.D. on 08/24/2016 at 14:48 PROCEDURE: X-RAY CHEST ONE VIEW, PORTABLE ([id number]) INDICATIONS: confusion IMPRESSION: 1. Congestive heart failure. 2. Possible superimposed left basilar pneumonia. Dictated by: Peyton Turpin M.D. on 08/23/2016 at 20:38 PROCEDURE: CT BRAIN WITHOUT CONTRAST ([id number]) INDICATIONS: Acute mental status changes. IMPRESSION: 1. No acute intracranial hemorrhage. 2. Extensive chronic small vessel ischemic changes and moderate parenchymal volume loss. Dictated by: Brennan Dias M.D. on 08/23/2016 at 14:26 Cardiac Echo Impressions Interpretation Summary The patient was in normal sinus rhythm during the exam. The left ventricle is normal in size. There is mild-moderate concentric left ventricular hypertrophy. The ejection fraction is estimated to be 65-70%. There is severe mitral annular calcification. The mitral valve leaflets appear significantly thickened. There is severe non-rhumatic mitral stenosis. There is moderate mitral regurgitation. There is a bioprosthetic aortic valve. Bioprosthetic leaflets are thickened and motion is restricted. There is severe aortic stenosis. There is moderate-severe pulmonary hypertension. The right ventricular systolic pressure is estimated at 59 mmHg assuming a right atrial pressure of 3 mm Hg. There is no prior echocardiogram noted for this patient. No other echocardiographic abnormalities seen. Assessment & Plan 86-year-old lady with past medical history of recurrent UTI, recent hospitalization for AMS due to suspected UTI was brought in for brief unresponsiveness. She was brought in from care home facility due to brief altered mental status. Unresponsiveness and lethargy. Patient has some baseline dementia. # Acute altered mental status/encephalopathy, unknown etiology, present on admission. Ongoing and intermittent -MRI brain negative for acute pathology . -Echocardiogram severe MS and severe . EF 65-70% -Stopped antibiotics on 08/26/16 given no clear source of infection at this time. # Possible subclinical hypothyroidism. - Elevated TSH and normal T4 - Further followup as outpatient # Probable recurrent urinary tract infection suspected on admission. Ruled out with negative urine culture. -Urinalysis unremarkable, urine culture no growth -Stop Ceftriaxone # Suspected Acute on chronic diastolic CHF/severe and severe MS -Patient on lisinopril, Lasix at home -Continue with low-dose metoprolol started earlier during this admission -She had some dyspnea 08/24. Crackles on chest exam and chest x-ray was evidence of congestion. Lasix 20 mg IV was given and improved. Another dose of Lasix IV 20 given today 08/25. resumed on Lasix 20 mg by mouth daily -Echocardiogram severe MS and severe .EF 65-70% # Acute diarrhea. Not present on admission. Improved. -C. difficile negative # History of hypertension. Poorly controlled and present on admission. Ongoing -Partly because of holding home medications initially. Patient was started on amlodipine on recent hospitalization for uncontrolled hypertension. -Increased dose of lisinopril from 10 mg to 20 mg daily and added metoprolol 25 mg by mouth daily # Acute hyperkalemia, present on admission. Resolved # Acute kidney injury. present on admission. -Resolved. # Chronic dementia, present on admission. Ongoing and appears acutely worse -Continue with supportive care # Goals of care -Palliative care consulted. will followup with recs Dispo: 1-2 days pending workup of encephalopathy and altered mental status. Resuscitation Status: CPR: Attempt Resuscitation Edgardo Ayoub Aug 27, 2016 17:38
--- NOTE | 2016-08-27 19:53 | NUR ---
Skin/Diarrhea Pt has had frequent diarrhea, sometimes incontinent, and there is skin breakdown bilaterally in the inguinal folds. Pt family requested immodium that pt takes daily, dr vee was spoken to regarding this, however it was not ordered at this time. Calmoseptine applied to bilateral inguinal folds.
--- NOTE | 2016-08-27 20:08 | NUR ---
Palliative Pts daughter was not present when palliative came for a consultation. Daughters name is Bobbi, her number is [phone] and she will be here at 1100 tomorrow 08/28. It would be timely if palliative could return at this time.
[2016-08-28] VITALS (7 sets, daily range): BP systolic 152–174; BP diastolic 60–74; PULSE 58–65; RESP 16–20; O2SAT 93–97
[2016-08-28] MEDS: Heparin 5,000 Unit/mL Inj SUBQ SCH ×3 (00:30→16:17)
--- NOTE | 2016-08-28 06:35 | NUR ---
Shift note Increased confusion/sun downing tonight shortly after family left was constantly calling used carbon coating machine operator line at one point d/t mixing Chinese w/ Macedonian and the carbon coating machine operator had trouble d/t her "mumbling" she appeared paranoid of everything "why socks are on, why fluids are running?" continues to have diarrhea.
[2016-08-28] MEDS: MeTOProlol XL 25 mg ER24 Tablet PO SCH (08:17)
--- NOTE | 2016-08-28 11:22 | NUR ---
Palliative care note D/A: Palliative care team notified that dtr will be here at 1100 today and would like to meet for consult. This worker calls [employer] but they are booked for today at that time. Note that RESEARCH AND DEVELOPMENT SPECIALIST notes indicate that dtr Bobbi ( h [phone] and c [phone]) would like pt to return to [facility] where she has been up until this admit for rehab. Unclear if pt is at SNF under her 'care benefits or private pay. Pt has an insurance that is not common in [facility] but was one that the patient had signed up for in [place] ([employer] Waited with Dr. Guillaume and pt for dtr who did not arrive. RN reports that dtr was going to try to come at 1100-evidently this is the time when she may get a break at her job. Dr. Guillaume calls to both cell and home number and leaves a message. RN reports that Dr. Ayoub may consider dc today. P: Palliative care to follow. Jenny GARCIA, CCM
--- NOTE | 2016-08-28 11:31 | NUR ---
Called and spoke with Christianne Meraz emergency management coordinator is working on one time agreement with [facility] to get patient transferred today. Updated ASSIGNER
--- NOTE | 2016-08-28 11:45 | NUR ---
Ambulate w/Nsg Pt is released, as well as encouraged, to ambulate w/nsg 2-3x/day. PT will cont to see 2x/week for continued progression of bed mobility and STS.
--- NOTE | 2016-08-28 12:03 | NUR ---
Palliative Care Family Meeting08/28/1710:40AM D: This bid writer and Palliative Care provider, Dr. Guillaume, met with pt. and her daughter, Bobbi, to review pt.'s code status and goals of care. Pt. is 86 year old woman with history of dementia. Per Bobbi, pt. should continue to be full code at this time. Bobbi notes that pt. is Holiness and has strong phyllis and belief that efforts should be made to resuscitate her. Bobbi shared that she knows pt. would likely suffer broken ribs or other adverse physical effects during CPR, but again notes she thinks her mother would want to have CPR attempted. Conversation then turned to where pt. will go at [place]. Bobbi would like pt. to return to [facility] for additional rehabilitation before going back to Bobbi's home. Bobbi requested that case management BILLIARD TABLE MECHANIC call her with confirmation that pt. can return to [facility]. Bobbi was returning to her work and will be available after 4:30PM, but notes a message can be left on her cell phone with an update on DC planning. Bobbi's cell: [phone]. A: Pt.'s daughter appears supportive of pt. continuing rehab-focused care before returning home. Pt. was alert and sitting in her chair during the meeting. P: This bid writer left VM message for case assistant, Bonnie Nunez, to please call pt.'s daughter to review plan for DC. Pt. may DC today. ALFONSO Salas, [facility] Palliative Care Services
--- NOTE | 2016-08-28 13:42 | NUR ---
Per [employer] FLATBED TRUCK DRIVER patient is now cleared to go home with home health and that she is no longer need to work on authorization for patient to return. Updated [employer] FLATBED TRUCK [employer]IVER
--- NOTE | 2016-08-28 13:45 | PCM.PNMED ---
Subjective Date of Service Aug 28, 2016 Subjective Denies any pain or discomfort Exam Vital Signs Vital Sign - Last Date Time Temp Pulse Resp B/P Pulse Ox O2 Delivery O2 Flow Rate FiO2 08/28/16 12:40 63 08/28/16 10:25 Nasal Cannula 2.00 08/28/16 08:14 36.6 18 173/74 93 Intake and Output 08/27/16 08/27/16 08/28/16 Cumulative From/Thru 15:00 23:00 07:00 08/23/16 13:22 - 08/28/16 06:23 Intake Total 1177 ml 1400 ml 6571 ml Output Total 776 ml Balance 1177 ml 1400 ml 5795 ml Intake Oral 800 ml 400 ml 3601 ml IV Total 377 ml 1000 ml 2950 ml Tube Irrigant 20 ml Output Urine Total 775 ml Urine/Stool Mix 1 ml # Voids 3 2 21 # Bowel Movements 4 2 18 Exam Awake and alert General: No Acute Distress Head: Normal Eyes: PERRLA, EOMI, Scleral Anicteric Nose: Mucous Membr Moist/[place] Mouth: Mucous Membr Moist/[place] Neck: Supple Chest & Lungs: Clear to auscultation bilat Cardiovascular: Regular Rate/Rhythm Abdomen: Non-tender, Non-distended, Normoactive bowel tones, Soft Extremities: No cyanosis/clubbing/edema bilat Neurological: Cranial Nerves 2-12 Intact IVs and Medications Medications Reviewed: Medications were reviewed in detail Lab and Diagnostics Result Diagram: 08/27/16 0636 08/28/16 0635 X-Rays, CTs and MRIs PROCEDURE: MRI BRAIN WITHOUT CONTRAST ([id number]) INDICATIONS: recurrent AMS TECHNIQUE: Non-contrast axial T1 spin echo, axial T2 fast spin echo, sagittal and axial FLAIR, coronal T2 fast spin echo, axial gradient echo, axial diffusion and ADC through the brain. COMPARISON: None. FINDINGS: Image quality: Excellent. CSF spaces: Ventricles appear symmetric in size and shape. Basal cisterns are patent. No extra-axial fluid collections. Brain: No intracranial bleeds or mass effects. There is cerebral volume loss for age. There are periventricular and deep white matter chronic small vessel ischemic changes. Brainstem appears normal. Diffusion-weighted images show no acute ischemic insults. No chronic ischemic insults. Normal intravascular flow voids are present. Skull and face: Calvarial bone marrow is normal in signal. Orbits are normal. Sinuses: Small amount of left mastoid fluid. Right maxillary sinus retention cyst. Sinuses and mastoids are otherwise clear. IMPRESSION: 1. No acute process. 2. Volume loss and small vessel ischemic disease. Dictated by: Gonzaels Jones M.D. on 08/24/2016 at 14:48 PROCEDURE: X-RAY CHEST ONE VIEW, PORTABLE ([id number]) INDICATIONS: confusion IMPRESSION: 1. Congestive heart failure. 2. Possible superimposed left basilar pneumonia. Dictated by: Peyton Turpin M.D. on 08/23/2016 at 20:38 PROCEDURE: CT BRAIN WITHOUT CONTRAST ([id number]) INDICATIONS: Acute mental status changes. IMPRESSION: 1. No acute intracranial hemorrhage. 2. Extensive chronic small vessel ischemic changes and moderate parenchymal volume loss. Dictated by: Brennan Dias M.D. on 08/23/2016 at 14:26 Cardiac Echo Impressions Interpretation Summary The patient was in normal sinus rhythm during the exam. The left ventricle is normal in size. There is mild-moderate concentric left ventricular hypertrophy. The ejection fraction is estimated to be 65-70%. There is severe mitral annular calcification. The mitral valve leaflets appear significantly thickened. There is severe non-rhumatic mitral stenosis. There is moderate mitral regurgitation. There is a bioprosthetic aortic valve. Bioprosthetic leaflets are thickened and motion is restricted. There is severe aortic stenosis. There is moderate-severe pulmonary hypertension. The right ventricular systolic pressure is estimated at 59 mmHg assuming a right atrial pressure of 3 mm Hg. There is no prior echocardiogram noted for this patient. No other echocardiographic abnormalities seen. Assessment & Plan 86-year-old lady with past medical history of recurrent UTI, recent hospitalization for AMS due to suspected UTI was brought in for brief unresponsiveness. She was brought in from [facility] facility due to brief altered mental status. Unresponsiveness and lethargy. Patient has some baseline dementia. # Acute altered mental status/encephalopathy, unknown etiology, present on admission. Ongoing and intermittent -MRI brain negative for acute pathology . -Echocardiogram severe MS and severe . EF 65-70% -Stopped antibiotics on 08/26/16 given no clear source of infection at this time. -Consider further neurology followup as outpatient (not available during this hospital) # Possible subclinical hypothyroidism. - Elevated TSH and normal T4 - Further followup as outpatient # Probable recurrent urinary tract infection suspected on admission. Ruled out with negative urine culture. -Urinalysis unremarkable, urine culture no growth -Stopped Ceftriaxone # Suspected Acute on chronic diastolic CHF/severe and severe MS -Patient on lisinopril, Lasix at home -Continue with low-dose metoprolol started earlier during this admission -She had some dyspnea 08/24. Crackles on chest exam and chest x-ray was evidence of congestion. Lasix 20 mg IV was given and improved. Another dose of Lasix IV 20 given 08/25. resumed on Lasix 20 mg by mouth daily -Echocardiogram severe MS and severe .EF 65-70% # Acute diarrhea. Not present on admission. Improved. -C. difficile negative # History of hypertension. Poorly controlled and present on admission. Ongoing -Partly because of holding home medications initially. Patient was started on amlodipine on recent hospitalization for uncontrolled hypertension. -Increased dose of lisinopril from 10 mg to 20 mg daily and added metoprolol 25 mg by mouth daily # Acute hyperkalemia, present on admission. Resolved # Acute kidney injury. present on admission. -Resolved. # Chronic dementia, present on admission. Ongoing and appears acutely worse -Continue with supportive care # Goals of care -Palliative care consulted. will followup with recs Dispo: 1-2 days with ? SNF vs HH Resuscitation Status: CPR: Attempt Resuscitation Edgardo Ayoub Aug 28, 2016 13:45
--- NOTE | 2016-08-28 14:28 | NUR ---
Social Work: Continued d/c planning Data: Pt is on day 5 of hospitalization. EMR reviewed. PT states recommendation is now home with HH. SENIOR MANAGER MMCOE spoke with MD regarding HH plan now instead of SNF. agreeable to this. SENIOR MANAGER MMCOE called companies regarding if they are contracted with pt's insurance, [facility] are not. Kayla ZAMARRIPA is looking into specific policy currently and will get back to SENIOR MANAGER MMCOE shortly. SENIOR MANAGER MMCOE called pt's daughter, no answer, left voice mail requesting call back regarding d/c plan and that pt may be ready for d/c today. Assessment: Pt from home with daughter assisting her. Plan: Pt will d/c home via POV with daughter, likely today, with possible HH depending on if pt's insurance covers it or not, or private pay. SENIOR MANAGER MMCOE awaiting phone call from pt's daughter and Kayla ZAMARRIPA regarding if they are contracted with pt's insurance. SENIOR MANAGER MMCOE will continue to follow. ALFONSO Dowell
--- NOTE | 2016-08-28 16:54 | NUR ---
Social Work: Readiness for discharge Data: Pt is on day 5 of hospitalization. EMR reviewed. MD states pt likely ready for d/c today or tomorrow. CUSTOMER ORDERS CLERK spoke with pt and pt's daughter. CUSTOMER ORDERS CLERK explained HH recommendation, pt and daughter declining stating that they will work on getting [facility] Medicaid and working on getting a PCP and that they will pursue HH at that time if needed. CUSTOMER ORDERS CLERK spoke with MD, who states pt likely to d/c tomorrow. CUSTOMER ORDERS CLERK will continue to follow if needs arise. Assessment: Pt with caregiving at baseline. Plan: Pt will d/c home via POV with daughter tomorrow, per MD. Declining HH at this time. CUSTOMER ORDERS CLERK will continue to follow if needs arise. ALFONSO Dowell
--- NOTE | 2016-08-28 18:16 | NUR ---
HTN Pt. hypertensive today with BP ranging in the 150s/60s- 170s/70s. Tele continues to show SB-SR. Pt. did take all BP meds this morning. notified of elevated BP and is aware. Will continue to monitor.
[2016-08-29 00:07] VITALS: BP 165/64; PULSE 64; RESP 14; O2SAT 92
[2016-08-29] MEDS: Heparin 5,000 Unit/mL Inj SUBQ SCH ×2 (00:27→08:01)
[2016-08-29 03:16] VITALS: BP 164/63; PULSE 62; RESP 14; O2SAT 93
[2016-08-29 03:54] VITALS: PULSE 60
--- NOTE | 2016-08-29 05:58 | NUR ---
Diarrhea Patient continues to be incontinent with diarrhea and HTN. Her O2 sats are still low but not under 92% on RA otherwise VSS and she is in good spirits.The plan today is for her discharge home with her daughter.
[2016-08-29 07:57] VITALS: BP 175/65; PULSE 66; RESP 17; O2SAT 98
[2016-08-29 08:00] VITALS: PULSE 65
[2016-08-29] MEDS: MeTOProlol XL 25 mg ER24 Tablet PO SCH (08:00)
[2016-08-29] MEDS ORDERED: LISI-610 PO (10:44)
--- NOTE | 2016-08-29 11:05 | PCM.DIMED ---
Discharge Instructions Date of Service Aug 29, 2016 Dates of Hospitalization Aug 23, 2016 at 17:13 Discharge Diagnosis Discharge Diagnosis # Acute and intermittent altered mental status/encephalopathy, unknown etiology , present on admission. Improved # Chronic valvulopathy including severe Mitral stenosis and severe Aortic stenosis with associated moderate-severe pulmonary hypertension noted on echocardiogram from 08/25/16 # Probable recurrent urinary tract infection suspected on admission. Ruled out with negative urine culture. # Acute on chronic diastolic congestive heart failure, present on admission. Improved # Acute on chronic diarrhea. Not present on admission. Improved. # History of hypertension. Poorly controlled and present on admission. Ongoing # Acute hyperkalemia, present on admission. Resolved # Acute kidney injury. present on admission. Resolved. # Chronic dementia, present on admission. Ongoing Diet Discharge Diet: Low fat, Low Sodium, Heart Healthy Activity Discharge Activity: Home Health Phyical Therapy Call your provider Call your provider for: Fever or Chills, Shortness of breath, Bleeding, Chest pain, Weakness (unilateral) Patient Instructions Patient Instructions Seek immediate medical attention if any new or worsening signs or symptoms occur. Follow-up plan 1. Followup with primary care provider in 4-5 days if possible. I have taken the liberty and tentatively setting you up with a new primary care provider at the [facility]idency [facility] (Dr. Nolan on Friday09/23/16 at 10:15 AM) in case you are unable to find a new PCP sooner in the meantime. [facility] [address] [place] [id number] Follow-up Provider: Deloris Nolan DO Follow-up with PCP in: Other ( Friday09/23/16 at 10:15 AM) Edgardo Ayoub Aug 29, 2016 11:05
[2016-08-29 12:35] VITALS: BP 173/69; PULSE 66; RESP 16; O2SAT 92
--- NOTE | 2016-08-29 13:57 | PCM.DC.MED ---
Discharge Summary Date of Service Aug 29, 2016 Dates of Hospitalization Date of Hospital Admission Aug 23, 2016 at 17:13 Date of Discharge: Aug 29, 2016 Providers: Admitting Physician: Edgardo Smith Primary Care Physician: Smith Attending Physician: Edgardo Smith Diagnosis at Time of Discharge Diagnosis at Time of Discharge # Acute and intermittent altered mental status/encephalopathy, unknown etiology , present on admission. Improved # Chronic valvulopathy including severe Mitral stenosis and severe Aortic stenosis with associated moderate-severe pulmonary hypertension noted on echocardiogram from 08/25/16 # Probable recurrent urinary tract infection suspected on admission. Ruled out with negative urine culture. # Acute on chronic diastolic congestive heart failure, present on admission. Improved # Acute on chronic diarrhea. Not present on admission. Improved. # History of hypertension. Poorly controlled and present on admission. Ongoing # Acute hyperkalemia, present on admission. Resolved # Acute kidney injury. present on admission. Resolved. # Chronic dementia, present on admission. Ongoing Consultations 1. Palliative Care Procedures XRay, CTs & MRIs PROCEDURE: MRI BRAIN WITHOUT CONTRAST ([id number]) INDICATIONS: recurrent AMS TECHNIQUE: Non-contrast axial T1 spin echo, axial T2 fast spin echo, sagittal and axial FLAIR, coronal T2 fast spin echo, axial gradient echo, axial diffusion and ADC through the brain. COMPARISON: None. FINDINGS: Image quality: Excellent. CSF spaces: Ventricles appear symmetric in size and shape. Basal cisterns are patent. No extra-axial fluid collections. Brain: No intracranial bleeds or mass effects. There is cerebral volume loss for age. There are periventricular and deep white matter chronic small vessel ischemic changes. Brainstem appears normal. Diffusion-weighted images show no acute ischemic insults. No chronic ischemic insults. Normal intravascular flow voids are present. Skull and face: Calvarial bone marrow is normal in signal. Orbits are normal. Sinuses: Small amount of left mastoid fluid. Right maxillary sinus retention cyst. Sinuses and mastoids are otherwise clear. IMPRESSION: 1. No acute process. 2. Volume loss and small vessel ischemic disease. Dictated by: Gonzales Jones M.D. on 08/24/2016 at 14:48 PROCEDURE: X-RAY CHEST ONE VIEW, PORTABLE ([id number]) INDICATIONS: confusion IMPRESSION: 1. Congestive heart failure. 2. Possible superimposed left basilar pneumonia. Dictated by: Peyton Turpin M.D. on 08/23/2016 at 20:38 PROCEDURE: CT BRAIN WITHOUT CONTRAST ([id number]) INDICATIONS: Acute mental status changes. IMPRESSION: 1. No acute intracranial hemorrhage. 2. Extensive chronic small vessel ischemic changes and moderate parenchymal volume loss. Dictated by: Brennan Dias M.D. on 08/23/2016 at 14:26 Cardiac Echo Impression Date of Service: 08/25/16 1323 Echocardiogram Report Interpretation Summary The patient was in normal sinus rhythm during the exam. The left ventricle is normal in size. There is mild-moderate concentric left ventricular hypertrophy. The ejection fraction is estimated to be 65-70%. There is severe mitral annular calcification. The mitral valve leaflets appear significantly thickened. There is severe non-rhumatic mitral stenosis. There is moderate mitral regurgitation. There is a bioprosthetic aortic valve. Bioprosthetic leaflets are thickened and motion is restricted. There is severe aortic stenosis. There is moderate-severe pulmonary hypertension. The right ventricular systolic pressure is estimated at 59 mmHg assuming a right atrial pressure of 3 mm Hg. There is no prior echocardiogram noted for this patient. No other echocardiographic abnormalities seen. Reading Physician:12:45 PM Brief History As noted in H&P by Dr. Brown: This is a 86-year-old female who was in the hospital 08/17-08/21/16 for AMS and is readmitted 08/23/16 for AMS probably due to a Urinary Tract Infection. She was at [facility], walking and talking at or near her baseline, then on day of admission she became lethargic, much less arousable and unable to speak or walk. No fevers or chills are reported. All history is from her daughter. There was no report of diarrhea however she does have a long history of fecal incontinence. In the ED she had fairly normal laboratories except for a mild hyperkalemia. She had RANDEE and hyperkalemia on her previous admission. Hospital Course # Acute altered mental status/encephalopathy, unknown etiology, present on admission. Improved -MRI brain negative for acute pathology . -Echocardiogram severe MS and severe . EF 65-70% -Stopped antibiotics on 08/26/16 given no clear source of infection at this time. -Consider further neurology followup as outpatient (not available during this hospital) # Possible subclinical hypothyroidism. - Elevated TSH and normal T4 - Further followup as outpatient # Probable recurrent urinary tract infection suspected on admission. Ruled out with negative urine culture. -Urinalysis unremarkable, urine culture no growth -Stopped Ceftriaxone # Suspected Acute on chronic diastolic CHF/severe and severe MS -Patient on lisinopril, Lasix at home -She had some dyspnea 08/24. Crackles on chest exam and chest x-ray was evidence of congestion. Lasix 20 mg IV was given and improved. Another dose of Lasix IV 20 given 08/25. resumed on Lasix 20 mg by mouth daily -Echocardiogram severe MS and severe .EF 65-70% # Acute diarrhea. Not present on admission. Improved. -C. difficile negative # History of hypertension. Poorly controlled and present on admission. Ongoing -Partly because of holding home medications initially. Patient was started on amlodipine on recent hospitalization for uncontrolled hypertension. -Increased dose of lisinopril from 10 mg to 20 mg daily and will increase to 20 mg BID on discharge # Acute hyperkalemia, present on admission. Resolved # Acute kidney injury. present on admission. -Resolved. # Chronic dementia, present on admission. Ongoing and appears acutely worse -Continue with supportive care # Goals of care -Palliative care consulted. Exam Vital Signs (Last) Date Time Temp Pulse Resp B/P Pulse Ox O2 Delivery O2 Flow Rate FiO2 08/29/16 12:35 36.2 66 16 173/69 92 Room Air 08/28/16 10:25 2.00 Exam Awake and alert General: No Acute Distress Head: Normal Eyes: PERRLA, EOMI, Scleral Anicteric Nose: Mucous Membr Moist/[place] Mouth: Mucous Membr Moist/[place] Neck: Supple Chest & Lungs: Clear to auscultation bilat Cardiovascular: Regular Rate/Rhythm Abdomen: Non-tender, Non-distended, Normoactive bowel tones, Soft Extremities: No cyanosis/clubbing/edema bilat Neurological: Cranial Nerves 2-12 Intact Test 08/23/16 14:41 08/23/16 15:25 08/24/16 05:44 08/25/16 09:53 Urine Color Yellow (YELLOW) Urine Appearance Clear (CLEAR,HAZY) Urine pH 5.5 (5.0-8.0) Urine Specific [place] <1.005 (1.003-1.035) Urine Protein Negativemg/dL (NEG,TRACE) Urine Glucose (UA) Negativemg/dL (NEGATIVE) Urine Ketones Negativemg/dL (NEGATIVE) Urine Occult Blood Trace (NEGATIVE) Urine Nitrite Negative (NEGATIVE) Urine Bilirubin Negative (NEGATIVE) Urine Urobilinogen Normalmg/dL (NORMAL) Urine Leukocyte Esterase Trace (NEGATIVE) Urine RBC 0-2/hpf (0-2) Urine WBC 0-5/hpf (0-5) Urine Epithelial Cells Few/hpf (NONE-MOD) Urine Crystals None seen (NONE SEEN) Urine Bacteria None/hpf (NONE-FEW) Urine Hyaline Casts None/lpf (NONE) Urine Granular Casts None seen (NONE SEEN) Urine Waxy Casts None seen (NONE SEEN) Urine Red Blood Cell Casts None seen (NONE SEEN) Urine White Blood Cell Casts None seen (NONE SEEN) Urine Mucus None seen (None Seen) Urine Trichomonas None seen (NONE SEEN) Urine Yeast None (NONE SEEN) Urinalysis Comment None Urine Culture Reflexed Indicated Lactic Acid Level 0.6mmol/L (0.4-2.0) Procalcitonin 0.14ng/mL (0.00-0.08) Total Bilirubin 0.2mg/dL (0.0-1.2) Aspartate Amino Transf (AST/SGOT) 47U/L (0-50) Alanine Aminotransferase (ALT/SGPT) 40U/L (0-32) Alkaline Phosphatase 90U/L (25-165) Troponin T 0.010ug/L (0.0-0.011) Pro-B-Type Natriuretic Peptide 4338pg/mL (0-738) Total Protein 7.2g/dL (6.4-8.4) Albumin 3.4g/dL (3.4-5.0) Test 08/27/16 06:36 08/28/16 06:35 White Blood Count 7.0th/mm3 (3.8-10.1) Red Blood Count 3.11mil/mm3 (3.90-5.20) Hemoglobin 7.9g/dL (12.0-15.6) Hematocrit 25.9% (35.0-46.0) Mean Corpuscular Volume 83.3fL (81-100) Mean Corpuscular Hemoglobin 25.4pg (27.0-35.0) Mean Corpuscular Hemoglobin Concent 30.5% (32.0-37.0) Red Cell Distribution Width 16.0% (12.3-15.4) Platelet Count 167bil/L (150-400) Neutrophils (%) (Auto) 54.6% (40-74) Lymphocytes (%) (Auto) 32.6% (14-46) Monocytes (%) (Auto) 9.4% (4-12) Eosinophils (%) (Auto) 2.4% (0-5) Basophils (%) (Auto) 0.6% (0-3) Prothrombin Time 9.5sec (8.1-12.5) Prothromb Time International Ratio 0.89ratio Activated Partial Thromboplast Time 35.3sec (22.8-33.0) Magnesium Level 2.5mg/dL (1.6-2.6) Thyroid Stimulating Hormone (TSH) 9.970uIU/mL (0.450-4.500) Free Thyroxine 1.17ng/dL (0.82-1.77) Sodium Level 137mEq/L (134-144) Potassium Level 5.3mEq/L (3.5-5.2) Chloride Level 101mEq/L (97-108) Carbon Dioxide Level 20mmol/L (18-29) Blood Urea Nitrogen 30mg/dL (8-27) Creatinine 0.89mg/dL (0.57-1.00) Estimat Glomerular Filtration Rate 86mL/min (>59) Glucose Level 149mg/dL (60-99) Calcium Level 8.8mg/dL (8.5-10.1) Discharge Medications Discharge Medications Amlodipine (Amlodipine) 5 Mg Tablet 10 MG PO DAILY Prescribed by: SUDHEER FONG MD Aspirin (Aspirin) 81 Mg Tablet 81 MG PO QAM (Reported) Cholecalciferol (Vitamin D3) (Vitamin D3) 2,000 Unit Tablet 2,000 UNIT PO QAM ( Reported) Ferrous Sulfate (Ferrous Sulfate) 325 Mg Tablet 325 MG PO Q48H (Reported) Furosemide (Furosemide) 20 Mg Tab 10 MG PO QAM (Reported) Glipizide (Glipizide) 5 Mg Tablet 2.5 MG PO HS (Reported) Levothyroxine (Levothyroxine) 25 Mcg Tablet 25 MCG PO QAM (Reported) Lisinopril (Zestril) 10 Mg Tablet 20 MG PO BID Prescribed by: EDGARDO SMITH MD Loperamide HCl (Imodium A-D) 2 Mg Capsule 2 MG PO QAM (Reported) Memantine (Namenda) 10 Mg Tablet 5 MG PO HS (Reported) Olanzapine (Olanzapine) 2.5 Mg Tablet 2.5 MG PO HS (Reported) As needed Acetaminophen (Acetaminophen) 325 Mg Tablet 650 MG PO Q4H PRN PRN For Fever ( Reported) Followup Plan Disposition: Home Follow-up plan 1. Followup with primary care provider in 4-5 days if possible. I have taken the liberty and tentatively setting you up with a new primary care provider at the Residency clinic (Dr. Nolan on Friday09/23/16 at 10:15 AM) in case you are unable to find a new PCP sooner in the meantime. [facility] [address] [place] [id number] Discharge Diet: Low fat, Low Sodium, Heart Healthy Discharge Activity: Home Health Phyical Therapy Patient Instructions Seek immediate medical attention if any new or worsening signs or symptoms occur. Follow-up Provider: Deloris Nolan DO Follow-up with PCP in: Other ( Friday09/23/16 at 10:15 AM) Time spent 35 min copies to: Deloris Nolan Masoud Aug 29, 2016 13:57
--- NOTE | 2016-08-29 16:11 | NUR ---
Discharge Pt. discharged to home via private vehicle at 1600 in stable condition. Accompanied by daughter and son in law. IV and tele dc'd prior to discharge. All belongings, instructions and scripts with pt. No questions or concerns at this time.
== END 2016-08-29 16:10 | disposition home or self-care (01) | DRG 70 ==
LOC: EDUNIT# 13:09 → EDBD 13:09 → SED 13:09 → MOC 17:13
PROVIDERS: ADMIT Internal Medicine; ATTEND Hospitalist
DX: G93.40 Encephalopathy, unspecified (principal); I50.33 Acute on chronic diastolic (congestive) heart failure; N17.9 Acute kidney failure, unspecified; E87.0 Hyperosmolality and hypernatremia; F03.90 Unspecified dementia, unspecified severity, without behavioral disturbance, psychotic disturbance, mood disturbance, and anxiety; R19.7 Diarrhea, unspecified; E87.5 Hyperkalemia; I10 Essential (primary) hypertension; I27.2 Other secondary pulmonary hypertension; I05.0 Rheumatic mitral stenosis; I35.0 Nonrheumatic aortic (valve) stenosis; Z87.440 Personal history of urinary (tract) infections; Z95.2 Presence of prosthetic heart valve; Z79.82 Long term (current) use of aspirin